=== PATIENT | female | born 1945 | race Asian ===

== ENCOUNTER → 2023-10-09 12:20 | Outpatient (REF) | payer MEDICARE, BC, SELFPAY ==
[2023-10-09 13:53] LABS: ALT (SGPT) 17 U/L (0-35); AST (SGOT) 29 U/L (14-36); Albumin 4.3 g/dl (3.5-5.0); Alkaline Phosphatase 34 U/L (38-126); Blood Urea Nitrogen 12 mg/dl (7-17); Calcium 10.8 mg/dl (8.4-10.2); Carbon Dioxide 29 mmol/L (22-30); Chloride 97 mmol/L (98-107); Glucose 107 mg/dl (70-99); Potassium 4.3 mmol/L (3.5-5.1); Sodium 135 mmol/L (135-145); Total Bilirubin 0.8 mg/dl (0.2-1.3); Total Protein 6.8 g/dl (6.3-8.2); eGFR > 60.00
== END ==
LOC: REG 12:20
PROVIDERS: ATTENDING PHYSICIAN Internal Medicine; FAMILY PHYSICIAN Internal Medicine
DX: M81.0 Age-related osteoporosis without current pathological fracture (principal); Z51.81 Encounter for therapeutic drug level monitoring
CPT/HCPCS: 36415; 80053; 82306

== ENCOUNTER → 2024-04-08 10:09 | Outpatient (REF) | payer MEDICARE, BC, SELFPAY ==
[2024-04-08 11:53] LABS: ALT (SGPT) 26 U/L (0-35); AST (SGOT) 32 U/L (14-36); Albumin 3.9 g/dl (3.5-5.0); Alkaline Phosphatase 35 U/L (38-126); Blood Urea Nitrogen 12 mg/dl (7-17); Calcium 9.2 mg/dl (8.4-10.2); Carbon Dioxide 25 mmol/L (22-30); Chloride 102 mmol/L (98-107); Glucose 101 mg/dl (70-99); Potassium 3.6 mmol/L (3.5-5.1); Sodium 133 mmol/L (135-145); Total Bilirubin 0.7 mg/dl (0.2-1.3); eGFR > 60.00
[2024-04-08 12:07] LABS: Vitamin D, 25-OH*** 54.4 ng/mL (30-80)
== END ==
LOC: RAD 10:09
PROVIDERS: ATTENDING PHYSICIAN Internal Medicine; FAMILY PHYSICIAN Internal Medicine
DX: M81.0 Age-related osteoporosis without current pathological fracture (principal)
CPT/HCPCS: 36415; 77080; 80053; 82306

== ENCOUNTER 2024-10-01 23:44 | Inpatient (IN) | payer MEDICARE, BC, SELFPAY ==
[2024-10-01 19:55] VITALS: BP 111/51
[2024-10-01 20:14] LABS: % Basophils 0.4 % (0-2); % Eosinophils 0.5 % (0-6); % Immature Granulocytes 0.4 % (0-0.5); % Lymphocytes 7.2 % (20.5-51.1); % Monocytes 4.6 % (1.7-9.3); % Neutrophils 86.9 % (42.2-75.2); Absolute Eosinophils 0.1 10^3/uL (0-0.7); Absolute Lymphocytes 0.7 10^3/uL (1.2-3.4); Absolute Monocytes 0.5 10^3/uL (0.1-0.6); Absolute Neutrophils 8.4 10^3/uL (1.4-6.5); Hematocrit 31.5 % (37.0-47.0); Hemoglobin 10.2 g/dL (12.0-16.0); Mean Corp Hgb Conc. 32.4 g/dL (33.0-37.0); Mean Corpuscular Hgb 32.5 pg (27.0-31.0); Mean Corpuscular Volume 100.3 fL (81.0-99.0); Mean Platelet Volume 8.6 fL (7.4-10.4); Nucleated Red Blood Cells % 0 %; Platelet Count 311 10^3/uL (130-400); Red Blood Cell Count 3.14 10^6/uL (4.20-5.40); Red Cell Dist. Width 15.5 % (11.5-14.5); White Blood Cell Count 9.7 10^3/uL (4.8-10.8)
[2024-10-01 20:31] LABS: ALT (SGPT) 21 U/L (0-35); AST (SGOT) 29 U/L (14-36); Albumin 2.6 g/dl (3.5-5.0); Alkaline Phosphatase 58 U/L (38-126); Blood Urea Nitrogen 46 mg/dl (7-17); Calcium 8.5 mg/dl (8.4-10.2); Carbon Dioxide 28 mmol/L (22-30); Chloride 103 mmol/L (98-107); Glucose 134 mg/dl (70-99); Potassium 3.5 mmol/L (3.5-5.1); Sodium 136 mmol/L (135-145); Total Bilirubin 0.7 mg/dl (0.2-1.3); Total Protein 4.7 g/dl (6.3-8.2); eGFR > 60.00
[2024-10-01 20:46] LABS: Lactic Acid 1.5 mmol/L (0.7-2.0)
[2024-10-01 21:58] VITALS: BP 108/47
[2024-10-01 22:00] VITALS: BP 105/52
[2024-10-01 22:02] VITALS: BMI 14.0
--- NOTE | 2024-10-01 22:46 | ED.GENMED ---
History of Present Illness
General
Chief Complaint: Skin Problem
Source: patient and family
Exam Limitations: none
Time Seen by Provider: 10/01/24 22:29
Nursing documentation reviewed up to this point in time: agreed with
History of Present Illness
History of Present Illness:
This a pleasant 78-year-old female that presents to the emergency department with decreased p.o. intake, body swelling, and redness with blisters to the lower extremities. She also notes that her legs are cold and pale. She states that her legs
have been cold since the beginning of August. Family member states that the blisters have been present for about 2 weeks but have progressively been worsening. They noticed that the swelling has increased. Patient has not had any fevers or
chills. She denies headache. Family states that she is unable to ambulate. She lives at home with her but does have family nearby. Upon presentation to the emergency department, nursing states that she was unable to assist in
transferring to the bed.
Past medical history significant for L3 compression fracture, osteoporosis, neck stenosis, pulmonary tuberculosis in 1974 that was treated by pulmonology.
Vital signs are stable. Patient not hypoxic
Nursing note reviewed. I agree with nursing documentation up to this point in time.
Home Meds and allergies reviewed.
NUMBER AND COMPLEXITY OF PROBLEMS ADDRESSED AT THE ENCOUNTER
� Chronic conditions affecting care: Cachexia, iron deficiency anemia, essential tremor, constipation
� Acute Exacerbation and/or Progression of Chronic Illness: cachexia
� Differential Diagnosis includes: Peripheral vascular disease, peripheral arterial disease,
AMOUNT AND/OR COMPLEXITY OF DATA TO BE REVIEWED AND ANALYZED
I performed an independent evaluation of the following and my interpretation is:
EKG:
Pulse Ox: Not Hypoxic
Child And Family Counselor: Sinus Rhythm
CT:
X-rays:
Ultrasound: ordered
Laboratory Studies: GFR is greater than 60, hemoglobin is 10.2, hematocrit hematocrit is 31.5
Other:
Review of other/old records: Upper GI endoscopy from 06/04/2019 showed a normal esophagus with gastritis.
Clinical information was obtained by an independent historian:
Prescriptions/Medications Considered but not given:
Further testing considered but not performed:
RISK OF COMPLICATIONS AND/OR MORBIDITY OR MORTALITY OF PATIENT MANAGEMENT
Social determinants of health affecting care: Good Social Support
Discussion with other providers: Dr. Raysa Quinonez, vascular surgery who recommended nonemergent ABIs.
Escalation of care including admission/observation vs risk of discharge considered: Patient is too weak to stand. When her head is lifted off the pillow she cannot support the weight of her head. Her wounds have been
cultured. Patient to be brought in for continued observation and further testing.
CRITICAL CARE NOTE:
Total Time (exclusive of procedures):
Update:
Review of Systems
Review of Systems
Allergies reviewed?: Yes
Other source history: family
All Other Systems: ROS reviewed and negative except as documented in HPI and ROS
Constitutional: Reports weight gain (Family states that she put on 20 pounds of weight recently. They states she normally weighs approximately 60 pounds) and fatigue
EENT: Reports no symptoms
Respiratory: Reports no symptoms
Cardiac: Reports no symptoms
ABD/GI: Reports no symptoms
: Reports no symptoms
Musculoskeletal: Reports edema
Skin: Reports rash
Neurological: Reports other (Paresthesias to the lower extremities. No other neurological symptoms reported.)
Endocrine: Reports no symptoms
Hematologic/Lymphatic: Reports no symptoms
Psychiatric: Reports anxiety
Phy Exam
Physical Exam
Physical Exam:
Physical Exam
Vital signs and allergy list reviewed and agreed with.
GENERAL: Alert , in minimal apparent distress, unwell appearing, cachectic
EYE: pupils equal, EOMI, anicteric
NECK: Supple, no significant adenopathy. No masses. Trachea midline
ENT: Oropharynx is clear, mmm.
CARDIAC: Regular rate and rhythm . Slight murmur appreciated
LUNGS: Clear breath sounds bilaterally, no acute respiratory distress, no wheezes/rales/rhonchi
ABDOMEN: Soft, without focal tenderness, no r/g, no cvat. Normal BSx4q
NEUROLOGICAL: Alert and oriented, no focal neuro deficits
SKIN: Warm and dry, bullae on the lower extremity. No signs of cellulitis. Bullae in various stages of healing.
MUSCULOSKELETAL: 2+ edema in the feet. Lower extremities are nonedematous. Poorly perfused. Pulses are thready with a Doppler. Moves all 4 extremities
PSYCH: Normal and appropriate interaction.
Neurological Exam
Neurological Exam: alert and oriented x3
Musculoskeletal Exam
Musculoskeletal Exam: edema (Edema of the lower extremities notably from the ankle to the foot. There is some ascites in the abdomen) and neuro vasc intact (Pulses in the lower extremity are dopplerable, but minimally detected by palpation.)
Skin Exam
Skin Exam: normal color, warm/dry, erythema, tenderness, warmth and other (Multiple blisters on bilateral feet in various stages of healing.)
Psychiatric Exam
Psychiatric Exam: normal mood/affect and anxious
Sepsis
Sepsis Screening
Sepsis Assessment: Sepsis Ruled Out
Sepsis Screen
Sepsis Screen: Sepsis Ruled Out
Date: 10/02/24
Time: 06:13
Course
Orders/Labs/Results
Orders:
Orders
10/01/24 20:04
Complete Blood Count/With Diff Urgent
Comprehensive Metabolic Panel Urgent
Erythrocyte Sed Rate Urgent
Lactic Acid Q4H
Comment: ON ICE, CANCEL 2ND ORDER IF FIRST LACTIC ACID LEVEL <2
NT-proBNP Urgent
Comment: ADD ON SERUM
10/01/24 22:30
Blood Culture Q30M
JANAE Source: Blood/Venous
Specimen Description:
Blood Culture Q30M
JANAE Source: Blood/Venous
Specimen Description:
10/01/24 22:31
Lactic Acid Q4H
Comment: CANCEL 2nd LACTIC ACID IF 1st LACTIC ACID IS LESS THAN 2
Wound Culture [Wound/Abscess/Other Culture] Urgent
JANAE Source: Leg
Specimen Description: Left
Date Specimen was Collected: 10/01/24
Time Specimen was Collected: 22:29
10/01/24 23:00
Lower Ext Arterial & MARQUEZ US [US Periph Art LOWER Ext w MARQUEZ] Urgent
Comment:
Reason For Exam: diminished pulses bilateral lower extremities
10/01/24 23:34
Admit/Transfer Patient As Directed
Co-Sign Provider:
Level of Care: Inpatient admission
Assign to:: Medical/Surgical
Physician / Group: harjinder
Diagnosis: lower extremity blisters
Reason for Hospitalization: lower extremity blisters
Expected length of stay greater than two midnights?: Yes
ELOS- Estimated Length of Stay in days: 2
I certify the patient meets the requirements for IP care: Yes
PRN Pain Medication Management As Directed
May give lesser potent ordered pain med per pt: Yes
preference::
Protocol:: Medication orders for pain may be administered in a
manner that supports deferring to patient preference
when the pt is:
- Requesting an ordered lesser potent pain medication.
Least to most potent pain medications are defined
as: acetaminophen < NSAID < tramadol < opioids
(morphine, oxycodone, hydromorphone).
- Requesting a lesser dose of the same medication IF
ORDERED.
- Requesting a less intrusive route of administration
if both routes are prescribed by the provider (PO <
IV).
10/01/24 23:35
Code Status As Directed
Resuscitation Status: Full Code
10/01/24 23:49
CRP [C-Reactive Protein] Urgent
10/02/24 00:09
Piperacillin/Tazo 3.375 Gram [Zosyn] 3.375 gram in 50 ml IV Q6H
VANCOMYCIN Pharmacy to Dose [VANCOCIN Pharmacy to Dose] 1 each Pharmacy To Prepare [Call Pharmacy To Prepare] 0 ml IV PER PROTOCOL
10/02/24 00:09
Vascular Surgery Consult Routine
Consulting Provider: Raysa Quinonez
Was physician already notified: Yes
WOUND/OSTOMY CONSULT Routine
Reason for Consult: leg blisters
Activity As Directed
Activity Level: As Tolerated
Vital Signs As Directed
Frequency: Per unit guidelines
DX Deep Vein Thrombosis Video Routine
10/02/24 01:33
Lactic Acid Q4H
Comment: CANCEL 2nd LACTIC ACID IF 1st LACTIC ACID IS LESS THAN 2
10/02/24 05:49
Complete Blood Count/With Diff IN AM
10/02/24 Breakfast
Regular
At Your Request: Limited, Shorer Required
Does patient need a safe tray?: No
Reason for opting out of [employer] order writing: Provider Decision
Comprehensive Metabolic Panel IN AM
10/02/24 08:00
Ascorbic Acid [Vitamin C] 500 mg PO DAILY
Calcium 300mg(Ca. Carb. 750mg) [Tums Ex (Extra Strength) Chewable Tablet] 300 mg PO BID
Cholecalciferol (Vitamin D3) [VITAMIN D3 (cholecalciferol)] 25 mcg PO DAILY
Heparin 5,000 units SC Q12
Multivitamin [Theragran] 1 tablet PO DAILY
digestive enzymes 2 cap PO MEALS
Abnormal Lab Results
10/01/24 10/01/24
20:04 22:31
RBC 3.14 L 10^6/uL
(4.20-5.40)
Hgb 10.2 L g/dL
(12.0-16.0)
Hct 31.5 L %
(37.0-47.0)
MCV 100.3 H fL
(81.0-99.0)
MCH 32.5 H pg
(27.0-31.0)
MCHC 32.4 L g/dL
(33.0-37.0)
RDW 15.5 H %
(11.5-14.5)
Absolute Neuts (auto) 8.4 H 10^3/uL
(1.4-6.5)
Absolute Lymphs (auto) 0.7 L 10^3/uL
(1.2-3.4)
Neutrophils % 86.9 H %
(42.2-75.2)
Lymphocytes % 7.2 L %
(20.5-51.1)
BUN 46 H mg/dl
(7-17)
Glucose 134 H mg/dl
(70-99)
Lactic Acid 2.2 H mmol/L
(0.7-2.0)
Total Protein 4.7 L g/dl
(6.3-8.2)
Albumin 2.6 L g/dl
(3.5-5.0)
10/01/24 20:04
10/01/24 20:04
Vital Signs
Initial and Last Documented VS:
Initial Vital Signs
Pulse Resp BP Pulse Ox
106 16 111/51 100
10/01/24 19:55 10/01/24 19:55 10/01/24 19:55 10/01/24 19:55
Last Documented Vital Signs
Temp Pulse Resp BP Pulse Ox
97.6 F 64 16 116/48 99
10/02/24 02:58 10/02/24 02:58 10/02/24 02:58 10/02/24 02:58 10/02/24 02:58
*Pulse Oximetry
Patient hypoxic: no
*Critical Care Note
Total Time (30-74mins, 75-104mins- exclusive of procedures): Not Applicable
Update Note
Update Note:
MARQUEZ bilateral ordered
ED Attending Note
-
Portions of this chart may have been created with voice recognition software.� Occasional wrong word or��sound alike� substitutions may have occurred due to the inherent limitations of voice recognition software.
Discharge Plan
Departure
Patient Disposition: Admit
Date of Disposition: 10/01/24
Time of Disposition: 23:19
Admit to: Telemetry
Presentation/result/management discussed w/ accepting MD/DO: Hospitalist
Discharge Problem:
Open wound, lower leg, Cachectic, Bilateral lower extremity edema
Interventions
Interventions:
*Risk Screen - Suicide Last Done: 10/01/24 19:55
*General Assessment Last Done: 10/01/24 19:55
*Neglect/Abuse Screening Last Done: 10/01/24 19:55
ED- Fall Risk Assessment Last Done: 10/01/24 23:57
*ED COVID-19 Vaccine History Last Done: 10/01/24 21:56
*Nursing Disposition Last Done: 10/02/24 02:25
ED-Skin Assessment Last Done: 10/01/24 21:57
Discharge Date and Time
Discharge Date/Time: 10/02/24 02:25
[2024-10-01 23:00] VITALS: BP 117/42
[2024-10-01 23:04] LABS: Lactic Acid 2.2 mmol/L (0.7-2.0)
--- NOTE | 2024-10-01 23:38 | HPS.HSE ---
Family Physician
-
Family Physician: Lg Hernandez
Chief Complaint
-
blisters
History of Present Illness
78-year-old female past medical history of L3 compression fracture, osteoporosis, pulmonary tuberculosis 1975 status post treatment, presenting with decreased p.o. intake, body swelling and redness with blisters of the lower extremities. Her legs
are cold and pale ongoing since August. Family ember states that blisters have been present for 2 weeks but have been progressively getting worse with discharge. Swelling is increased. No fevers or chills. No headache. She is unable to
ambulate. She lives with her but has family nearby. She is also been having increased abdominal distention.
She also having left eye redness and discharge for the past few days.
She denies smoking or alcohol use
Family history of heart disease or vascular disease.
Medical History
Past Medical History
Past Medical History: Reports Other (L3 compression fracture, osteoporosis, pulmonary tuberculosis 1975 status post treatment,)
Past Surgical History: Reports None
Social History
Tobacco: Non-smoker
Alcohol: None
Drug: None
Family History
Family History: Not pertinent
Allergies / Home Medications
Allergies reflects when Allergies were last updated in [facility].
Home Medications with original date entered in [facility]
Allergy/Medication List:
Allergies
Allergy/AdvReac Type Severity Reaction Status Date / Time
NKA - No Known Allergies Allergy Uncoded 12/14/07 10:32
Home Medications
ascorbic acid (vitamin C) 500 mg tablet (Vitamin C) 500 mg PO DAILY 10/01/24
calcium carbonate (Calcium 600) 600 mg PO BID 10/01/24
cholecalciferol (vitamin D3) 25 mcg (1,000 unit) tablet (Vitamin D3) 25 mcg PO DAILY 10/01/24
denosumab 60 mg/mL subcutaneous syringe (Prolia) 60 mg SC [id number] 10/01/24
digestive enzymes 2 cap PO MEALS 10/01/24
therapeutic multivitamin 1 tab PO DAILY 10/01/24
Review of Systems
-
History Source: Patient
A 12 point ROS was completed and negative except as noted: Yes
Constitutional: Reports No Symptoms
EENT: Reports No Symptoms
Respiratory: Reports No Symptoms
Cardiac: Reports No Symptoms
Abdomen/GI: Reports No Symptoms
: Reports No Symptoms
Musculoskeletal: Reports No Symptoms
Skin: Reports See HPI and Other
Neurological: Reports No Symptoms
Endocrine: Reports No Symptoms
Hematologic/Lymphatic: Reports No Symptoms
Psych: Reports No Symptoms
Physical Exam
Vital Signs
Vital Signs
Pulse Resp BP Pulse Ox
75 24 117/42 97
10/01/24 23:00 10/01/24 23:00 10/01/24 23:00 10/01/24 23:00
Physical Exam
General: Well Developed, Well Nourished and No Apparent Distress
HEENT: NormoCephalic, Moist mucous membranes and Atraumatic
Respiratory: Clear
Cardiac: S1/S2 and Regular Rhythm; No Murmur or Rub
GI: Soft, Non Tender, Non Distended and Normal Bowel Sounds; No Organomegaly
Rectal: Deferred by Provider
Musculoskeletal: No Clubbing, No Cyanosis and No Edema
Skin: Other (lower extremity blisters, swelling ); No Rash
Neuro: Nonfocal/grossly intact
Laboratory Results
-
10/01/24 20:04
10/01/24 20:04
Laboratory Results
Lactic Acid 2.2 mmol/L (0.7-2.0) H 10/01/24 22:31
Total Bilirubin 0.7 mg/dl (0.2-1.3) 10/01/24 20:04
AST 29 U/L (14-36) 10/01/24 20:04
ALT 21 U/L (0-35) 10/01/24 20:04
Alkaline Phosphatase 58 U/L (38-126) 10/01/24 20:04
Data Reviewed
-
Lab Data: Labs Reviewed by me
Old Records: Reviewed
Impression/Plan
-
IMPRESSION:
PLAN:
# Bilateral lower extremity blisters/edema suspected secondary to underlying vascular insufficiency
-The lesions are crusted over may not be actively infected
-Check blood cultures
-Wound culture
-Check MARQUEZ
-Vascular consulted
-Vancomycin/Zosyn
-Wound care consult
# Anasarca/hypoalbuminemia
-Nutrition consult
History of L3 compression fracture
Osteoporosis
-On vitamin D, calcium, Prolia
History of pulmonary tuberculosis in 1975 status post treatment
DNR/DNI
DVT prophylaxis�heparin
Regular diet
[2024-10-02] VITALS (7 sets, daily range): BP systolic 98–130; BP diastolic 39–51; BMI 14.0
[2024-10-02 00:07] LABS: Erythrocyte Sed Rate 16 mm/hour (0-20)
[2024-10-02 00:42] LABS: NT-proBNP 3940 pg/ml
[2024-10-02] MEDS: ZOSYN 50 IV ×4 (01:36→19:29)
[2024-10-02 01:58] LABS: Lactic Acid 1.4 mmol/L (0.7-2.0)
[2024-10-02] MEDS: VANCOCIN 200 IV (02:10)
--- NOTE | 2024-10-02 02:30 | PTCARENOTE ---
Patient arrived on unit via stretcher from ED. Patient pulled over to bed by staff. A&Ox3. Patient oriented to room. Call light within reach.
[2024-10-02 06:03] LABS: % Basophils 0.6 % (0-2); % Eosinophils 2.3 % (0-6); % Immature Granulocytes 0.6 % (0-0.5); % Lymphocytes 8.5 % (20.5-51.1); % Monocytes 4.8 % (1.7-9.3); % Neutrophils 83.2 % (42.2-75.2); Absolute Basophils 0.1 10^3/uL (0-0.2); Absolute Eosinophils 0.2 10^3/uL (0-0.7); Absolute Immature Granulocytes 0.1 10^3/uL (0-0.05); Absolute Lymphocytes 0.7 10^3/uL (1.2-3.4); Absolute Monocytes 0.4 10^3/uL (0.1-0.6); Hematocrit 30.1 % (37.0-47.0); Mean Corp Hgb Conc. 33.2 g/dL (33.0-37.0); Mean Corpuscular Hgb 32.9 pg (27.0-31.0); Mean Platelet Volume 8.5 fL (7.4-10.4); Nucleated Red Blood Cells % 0 %; Platelet Count 264 10^3/uL (130-400); Red Blood Cell Count 3.04 10^6/uL (4.20-5.40); Red Cell Dist. Width 15.3 % (11.5-14.5); White Blood Cell Count 8.4 10^3/uL (4.8-10.8)
[2024-10-02 06:47] LABS: ALT (SGPT) 18 U/L (0-35); AST (SGOT) 27 U/L (14-36); Albumin 2.1 g/dl (3.5-5.0); Alkaline Phosphatase 46 U/L (38-126); Blood Urea Nitrogen 46 mg/dl (7-17); Calcium 8.4 mg/dl (8.4-10.2); Carbon Dioxide 26 mmol/L (22-30); Chloride 105 mmol/L (98-107); Estimated Creatinine Clearance 44 ml/min; Glucose 93 mg/dl (70-99); Potassium 3.5 mmol/L (3.5-5.1); Sodium 136 mmol/L (135-145); Total Bilirubin 0.6 mg/dl (0.2-1.3); Total Protein 4.3 g/dl (6.3-8.2); eGFR > 60.00
--- NOTE | 2024-10-02 08:38 | PHA.VAN.IN ---
Assessment
- Assessment
Renal Function: Appears similar to baseline (SCR appears similar to baseline, BUN elevated at 46 vs ~12 in past year)
Concomitant Antimicrobials: piperacillin/tazobactam
Plan
- Plan
Initial / Loading Dose: 1000mg - 10/02 02:10
Maintenance Regimen: dosing by level - will give additional 500mg
Monitoring: random 10/03 0600
Will start with dose by level for elevations to BUN
Pharmacokinetics Vancomycin I
- -
Patient Age: 78
Patient Sex: Female
Vancomycin Day #: 1
Indication: Skin And Soft Tissue
Requesting Provider: Dr. Low
Pertinent Antimicrobial Allergies:
NKDA
Height / Weight:
Height 5 ft 4 in
Actual Weight 37 kg
IBW in k.7
Pertinent Past Medical History: BMI ~14
- Vital Signs / Lab Results
Temp Pulse Resp BP Pulse Ox
97.6 F 66 16 98/49 100
10/02/24 07:55 10/02/24 07:55 10/02/24 07:55 10/02/24 07:55 10/02/24 07:55
Lab Results - Hematology
10/01/24 10/02/24
20:04 05:49
WBC 9.7 8.4
Lab Results - Chemistry
10/01/24 10/02/24
20:04 05:49
BUN 46 H 46 H
Creatinine 0.7 0.6
Estimated Creat Clear 44
Albumin 2.6 L 2.1 L
10/01/24 10/01/24 10/02/24
20:04 22:31 01:33
Lactic Acid 1.5 2.2 H 1.4
[2024-10-02] MEDS: THERAGRAN 1 TABLET PO (08:41)
[2024-10-02] MEDS: VITAMIN D3 (cholecalciferol) 25 MCG PO (08:41)
[2024-10-02] MEDS: VITAMIN C 500 MG PO (08:41)
[2024-10-02] MEDS: HEPARIN 5000 UNITS SC ×2 (08:41→19:28)
[2024-10-02] MEDS: TUMS EX (EXTRA STRENGTH) CHEWABLE TABLET 300 MG PO ×2 (08:59→19:27)
--- NOTE | 2024-10-02 09:10 | CON.VAS ---
Addendum entered and electronically signed by Mateo Tyler MD 10/02/24 15:55:
Seen and examined with MYA Justin. Agree with findings as noted below. Wounds as noted. No evidence of arterial insufficiency both on exam (easily palpable femoral/popliteal/pedal pulses bilaterally) and by noninvasive studies. Likely not arterial
genic ulcerations. Not clear if this represents pyoderma gangrenosum or other noninfectious/nonvascular lesions. Recommend continued wound care, possible eventual dermatology evaluation if concern for healing process. Nothing further from a
vascular perspective. Will sign off.
Original Note:
Consultation
Consultation Request
Date/Time Consultation Performed: 10/02/24
Requesting Provider: Hospitalist
Performing Provider: Eli Justin NP-C for Mateo Tyler MD
Reason for Consultation: Bilateral ankle wounds and ulcerations
Medical History
-
Chief Complaint: Poor p.o. intake and chronic bilateral ankle wounds
History of Present Illness:
This is an 78-year-old female with significant past medical history for osteoporosis, L3 compression fracture, and pulmonary tuberculosis in 1974 who presented to [facility] ED on 10/01/2024 with reports of poor p.o. intake, generalized body
swelling, and continued bilateral lower extremity redness with ulcerations. Patient notes that since roughly early August she has had continued poor p.o. intake and generalized deconditioning to the point where she is no longer ambulatory and she
is maximum assist with her 's aide. She also notes increasing coolness to extremities and swelling with roughly 2 to 3 weeks ago development of bilateral lower extremity calf/ankle redness with ulcerations/sores that have been weeping and
progressively getting worse eventually leading to her reasoning for ED presentation. She reports her poor p.o. intake is due to body swelling that leaves her with no appetite. She offers no other complaints and denies past vascular or surgical in
general interventions. She cannot attest that she has any claudication pain as she has been basically nonmobile since August and prior to that limited in her ambulation. She denies rest pain.
Past Medical History
Past Medical History: Other (L3 compression fracture, osteoporosis, pulmonary tuberculosis 1975 status post treatment)
Past Surgical History: None
Social History
Tobacco: Non-Smoker
Alcohol: None
Allergies / Home Medications
Allergy/AdvReac Type Severity Reaction Status Date / Time
No Known Allergies Allergy Unverified 10/02/24 08:38
�Medication �Instructions �Recorded �Confirmed �Type
ascorbic acid (vitamin C) 500 mg 500 mg PO DAILY 10/01/24 10/01/24 History
tablet (Vitamin C)
calcium carbonate (Calcium 600) 600 mg PO BID 10/01/24 10/01/24 History
cholecalciferol (vitamin D3) 25 25 mcg PO DAILY 10/01/24 10/01/24 History
mcg (1,000 unit) tablet (Vitamin
D3)
denosumab 60 mg/mL subcutaneous 60 mg SC [id number] 10/01/24 10/01/24 History
syringe (Prolia)
digestive enzymes 2 cap PO MEALS 10/01/24 10/01/24 History
therapeutic multivitamin 1 tab PO DAILY 10/01/24 10/01/24 History
Review of Systems
-
History Source: Patient
Constitutional: Reports Weight Loss and Fatigue
EENT: Reports No Symptoms
Respiratory: Reports No Symptoms
Cardiac: Reports No Symptoms
Abdomen/GI: Reports Anorexia and Other (Poor p.o. intake/no appetite)
: Reports No Symptoms
Musculoskeletal: Reports Edema
Skin: Reports Other (Bilateral ankle/calf erythema with ulcerations/sores)
Neurological: Reports No Symptoms
Endocrine: Reports No Symptoms
Physical Exam
Vital Signs
Temp Pulse Resp BP Pulse Ox
97.6 F 66 16 98/49 100
10/02/24 07:55 10/02/24 07:55 10/02/24 07:55 10/02/24 07:55 10/02/24 07:55
Lab Results
02/12/25 05:49
10/02/24 05:49
Rym-G-Qnnhgelvkle Pept 3940 pg/ml 10/01/24 20:04
Physical Exam
General: No Apparent Distress, Comfortable, Poor Appetite and Other (Cachectic)
HEENT: Normocephalic, Anicteric and Atraumatic
Respiratory: Non Labored Respirations
Cardiac: Irregular Rhythm; Negative JVD
GI: Non Tender
Musculoskeletal: Edema (+2 pitting edema at bilateral lower extremities)
Skin: Warm, Rash and Other (Bilateral lower extremity ankle/calf erythema with accompanying ulcerations/sores and sloughing skin)
Neuro: Awake, Alert and Oriented
Pulses: Bilateral Femoral: +2 and Bilateral Dorsalis Pedis: +2 (Unable to assess PT pulses via palpation due to sores and edema)
Assessment / Plan
-
Assessment: 78-year-old female with bilateral lower extremity cellulitis and accompanying ulcerations
Plan:
Unclear if bilateral lower extremity cellulitis and ulcerations/sores are exacerbated by a significant underlying peripheral arterial disease, physical exam and presentation of wounds does not necessarily support diagnosis of peripheral arterial
disease given palpable DP pulses and nature of skin sloughing/superficial ulcerations, no clear dry gangrene arterial ischemia wounds present at feet. Will start workup with arterial ultrasound with MARQUEZ/TBI.
Of note while assessing peripheral pulses noted irregular rhythm, twelve-lead EKG ordered, conveyed plan and irregular rhythm to hospitalist via [place] text.
I performed this shared service with the attending. I evaluated the patient [id number] and have entered clinical documentation as shown in the encounter note. I performed the following component(s):�history and physical exam. Note that medical
decision making is not final until attested by vascular attending.
--- NOTE | 2024-10-02 10:06 | WOUNDNOTE ---
WON RN note: Patient admitted with open wounds and edema of lower legs, cachectic.
See H&P for complete history. Lives with .
PMH: (L3 compression fracture, osteoporosis, pulmonary tuberculosis 1975 status post treatment)
Wound Location and type/assessment: Patient admitted with: lower leg/feet edema and venous ulcers vs atypical wounds. Wound culture pending. Assessed patient along with vascular AIR DEFENSE SPECIALIST Eli Justin, Doppler's done at bedside, + pulses with Doppler and
palpable. Heels boggy but intact. No complaint of severe pain upon cleaning ulcers. Patient said blisters started on lower legs about 2 wks ago along with leg swelling. Has had increased difficulty walking, normally uses a walker and helps
her get oob. Patient able to turn self to sides, Sacrum/coccyx non blanchable red, stage 1 PI, sacral silicone foam in use.
Appetite: Poor, very malnourished. Recommend nutrition consult.
Pressure redistribution devices in place: On [employer] bed, air chair cushion on pillow under calves. Instructed nurse Marion to add air overlay to bed if not getting up in chair, patient can turn self.
Plan: Xeroform and dry dressing applied to both legs with alexander wraps knee high. Continue protective foam on sacrum.
Will confirm orders with hospitalist and updated nurse. Updated care plan and will follow as needed.
Note to case management of equipment requested for discharge: VN for wound care.
Recommend follow up at wound care center upon discharge.
--- NOTE | 2024-10-02 10:06 | WOUNDNOTE ---
BILATERAL LEGS/FOOT
--- NOTE | 2024-10-02 10:07 | WOUNDNOTE ---
RIGHT ANKLE/FOOT
--- NOTE | 2024-10-02 10:08 | WOUNDNOTE ---
RIGHT FOOT/ANKLE/LEG
--- NOTE | 2024-10-02 10:08 | WOUNDNOTE ---
RIGHT POSTERIOR ANKLE/LEG
--- NOTE | 2024-10-02 10:09 | WOUNDNOTE ---
LEFT POSTERIOR ANKLE
--- NOTE | 2024-10-02 10:10 | WOUNDNOTE ---
LEFT LATERAL ANKLE/FOOT
--- NOTE | 2024-10-02 10:10 | WOUNDNOTE ---
LEFT DORSAL FOOT/POSTERIOR ANKLE
--- NOTE | 2024-10-02 10:11 | WOUNDNOTE ---
LEFT POSTERIOR ANKLE/LEG
--- NOTE | 2024-10-02 10:12 | WOUNDNOTE ---
LEFT POSTERIOR ANKLE/LEG
--- NOTE | 2024-10-02 10:12 | WOUNDNOTE ---
LEFT POSTERIOR LEG/ANKLE/HEEL
--- NOTE | 2024-10-02 10:16 | WOUNDNOTE ---
BILATERAL LOWER LEGS
--- NOTE | 2024-10-02 10:22 | WOUNDNOTE ---
RIGHT POSTERIOR ANKLE/LEG/RIGHT HEEL
--- NOTE | 2024-10-02 10:23 | WOUNDNOTE ---
LEFT POSTERIOR LEG
--- NOTE | 2024-10-02 12:12 | W.PN.HOSP.TC ---
Today's Communication/Plan
-
Assessment / Plan
Assessment / Plan
NAD, thin, cachectic, frail
Scleral Anicteric
MMM
No JVD
CTABL
RRR, S1/S2
Soft, NT, ND, BS+
Warm, Dry, lower extremities wrapped in Viadl bandages
AAOx3
Calm
Cutaneous bilateral lower limb ulceration/blistering
Unclear as to etiology
Vascular surgery following completing ABIs at this time however palpable DP/PT pulses
Will obtain a abdominal ultrasound as she complains of abdominal distention
Will obtain CT chest abdomen pelvis with contrast to rule out lymphoma or other underlying malignant process as she has severe cachexia and with these cutaneous lesions
Continue wound care
Will discontinue IV antibiotics monitor off as have reviewed pictures and these do not look infected. No white count. And afebrile.
Anasarca/hypoalbuminemia and anorexic with a BMI less than 18
-Nutrition consult
History of L3 compression fracture
Osteoporosis
-On vitamin D, calcium, Prolia
History of pulmonary tuberculosis in 1975 status post treatment
Anticipated Discharge: 24 - 48 hours
Subjective/Interval History
-
Date of Service: October 02, 2024
Seen and examined. No new complaints. No acute overnight events.
-Tells me that she has had ongoing worsening abdominal distention however her abdomen is flat soft nontender on examination
States that the blistering/ulceration on her lower extremities has been progressively getting worse over 2 weeks
She tells me that she does not eat a lot because of gastric issues
Objective Data
-
Labs:
Laboratory Results
10/02/24
05:49
WBC 8.4
Hgb 10.0 L
Hct 30.1 L
Plt Count 264
Sodium 136
Potassium 3.5
Chloride 105
Carbon Dioxide 26
BUN 46 H
Creatinine 0.6
Glucose 93
Calcium 8.4
Total Bilirubin 0.6
AST 27
ALT 18
Alkaline Phosphatase 46
Vital Signs:
Vital Signs
Temp Pulse Resp BP Pulse Ox
97.6 F 66 16 98/49 100
10/02/24 07:55 10/02/24 07:55 10/02/24 07:55 10/02/24 07:55 10/02/24 07:55
[2024-10-02] MEDS: OMNIPAQUE 50 ML PO (14:22)
--- NOTE | 2024-10-02 15:26 | CM ---
Alert awake sleepy patient who lives with her Veronica who lives in an apartment with an elevator. (which is broken right now).She was independent but recently needs assistance in all activities of daily living.Will need PT OT for dc
planning.She speaks Tamazight and Maori.Spoke with cal Mclean at bedside [phone].
She uses walker
Never had VN/SNF
Pharmacy [facility]
PCP Dr Martinez
PLAN will need PT Ot for dc planning
[2024-10-02] MEDS: VANCOCIN HCL 500 MG 100 IV (15:34)
[2024-10-03] MEDS: ZOSYN 50 IV ×2 (01:38→09:50)
[2024-10-03 06:01] LABS: Vancomycin Random 14.7 ug/ml
[2024-10-03 06:34] LABS: Hematocrit 35.7 % (37.0-47.0); Mean Corp Hgb Conc. 33.6 g/dL (33.0-37.0); Mean Corpuscular Hgb 32.7 pg (27.0-31.0); Mean Corpuscular Volume 97.3 fL (81.0-99.0); Mean Platelet Volume 8.9 fL (7.4-10.4); Platelet Count 329 10^3/uL (130-400); Red Blood Cell Count 3.67 10^6/uL (4.20-5.40); Red Cell Dist. Width 14.9 % (11.5-14.5); White Blood Cell Count 12.4 10^3/uL (4.8-10.8)
[2024-10-03 06:58] LABS: ALT (SGPT) 20 U/L (0-35); AST (SGOT) 30 U/L (14-36); Albumin 2.6 g/dl (3.5-5.0); Alkaline Phosphatase 61 U/L (38-126); Blood Urea Nitrogen 40 mg/dl (7-17); Calcium 8.2 mg/dl (8.4-10.2); Carbon Dioxide 22 mmol/L (22-30); Chloride 103 mmol/L (98-107); Estimated Creatinine Clearance 44 ml/min; Glucose 87 mg/dl (70-99); Potassium 3.8 mmol/L (3.5-5.1); Sodium 132 mmol/L (135-145); Total Bilirubin 0.8 mg/dl (0.2-1.3); Total Protein 4.8 g/dl (6.3-8.2); eGFR > 60.00
[2024-10-03 08:08] VITALS: BP 115/47
[2024-10-03 08:20] VITALS: BP 155/77; BP_SYST 55
--- NOTE | 2024-10-03 08:32 | PHA.VAN.FU ---
Vancomycin Assessment / Plan
- Assessment
Renal Function: Stable (BUN remains elevated)
WBC's are: Trending Up
In the past 24 hrs, patient has been: Afebrile
Concomitant Antimicrobials: piperacillin/tazobactam
- Assessment - Therapeutic Drug Monitoring
Random Level: 14.7 - drawn ~13.5H after previous dose of 500mg
- Dosing Plan
Dosing by Level: Re-dose today (Vanc 500mg)
- Monitoring Plan
Random Level: 10/04 06
- Follow Up
Pharmacy will continue to follow.
Vancomycin Follow UP
- -
Patient Age: 78
Patient Sex: Female
Vancomycin Day #: 2
Indication: Skin And Soft Tissue
Requesting Provider: Dr. Low
Pertinent Antimicrobial Allergies:
NKDA
Height / Weight:
Height 5 ft 4 in
Actual Weight 37 kg
IBW in k.7
Pertinent Past Medical History: BMI ~14
- Vital Signs / Lab Results
Temp Pulse Resp BP Pulse Ox
97.5 F 66 16 115/47 99
10/02/24 23:40 10/03/24 08:08 10/03/24 08:08 10/03/24 08:08 10/03/24 08:08
Lab Results - Hematology
10/01/24 10/02/24 10/03/24
20:04 05:49 05:13
WBC 9.7 8.4 12.4 H
Lab Results - Chemistry
10/01/24 10/02/24 10/03/24
20:04 05:49 05:13
BUN 46 H 46 H 40 H
Creatinine 0.7 0.6 0.5 L
Estimated Creat Clear 44 44
Albumin 2.6 L 2.1 L 2.6 L
10/01/24 10/01/24 10/02/24
20:04 22:31 01:33
Lactic Acid 1.5 2.2 H 1.4
Microbiology Results
10/01/24 22:30 Blood Culture - Preliminary
Blood/Venous No Growth in 24 hours- Final report to follow
10/01/24 22:30 Blood Culture - Preliminary
Blood/Venous No Growth in 24 hours- Final report to follow
10/01/24 22:31 Gram Stain - Preliminary
Leg - Left
Therapeutic Drug Monitoring
Random Vancomycin 14.7 ug/ml 10/03/24 05:13
[2024-10-03] MEDS: HEPARIN 5000 UNITS SC (09:44)
[2024-10-03] MEDS: TUMS EX (EXTRA STRENGTH) CHEWABLE TABLET 300 MG PO ×2 (09:44→19:51)
[2024-10-03] MEDS: THERAGRAN 1 TABLET PO (09:44)
[2024-10-03] MEDS: VITAMIN D3 (cholecalciferol) 25 MCG PO (09:44)
[2024-10-03] MEDS: VITAMIN C 500 MG PO (09:44)
[2024-10-03 11:43] LABS: Body Fluid Albumin < 1.0 g/dl; Body Fluid LDH < 90 U/L; Body Fluid Protein < 2.0 g/dl
[2024-10-03 11:45] LABS: Body Fluid Mononuclear 91.3 %; Body Fluid Polymorphonuclear 8.7 %; Body Fluid WBC 23 /CUMM
[2024-10-03] MEDS: VANCOCIN HCL 500 MG 100 IV (11:49)
[2024-10-03 12:11] LABS: Body Fluid Second Tech SS
[2024-10-03] MEDS: LASIX 20 MG IV (12:40)
[2024-10-03] MEDS: REFRESH EYE DROPS (PF) 1 DROPS LEFT EYE ×3 (12:40→19:51)
--- NOTE | 2024-10-03 12:40 | W.PN.HOSP.TC ---
Today's Communication/Plan
-
Assessment / Plan
Assessment / Plan
NAD, thin, cachectic, frail
Scleral Anicteric
MMM
No JVD
CTABL
RRR, S1/S2
Soft, NT, ND, BS+
Warm, Dry, lower extremities wrapped in Vidal bandages
AAOx3
Calm
Cutaneous bilateral lower limb ulceration/blistering
-I spoke with daughter over the phone who is a physician in [facility]. Practices hospitalist medicine. She informs me that her mom has not been experiencing bilateral lower extremity edema/pedal edema that is been progressively getting
worse. Suspect likely fluid caused a blister which eventually ruptured to develop these bilateral cutaneous lesions.
-CT did not demonstrate adenopathy to suspect lymphoma nor was there evidence of solid lesions to suspect malignancy
Anasarca/hypoalbuminemia and anorexic with a BMI less than 18
-SAAG 1.6, protein less than 2, however CT did not demonstrate cirrhosis
-Will ask GI to evaluate
-Nutrition consult
-Does not want PEG tube as this does not align with goals of care
-Will check a 2D echocardiogram
-Aym some evidence of volume overload will give a dose of diuretics
Hypothermia with lower extremity edema
-Check TSH
History of L3 compression fracture
Osteoporosis
-On vitamin D, calcium, Prolia
History of pulmonary tuberculosis in 1974 status post treatment
Per her daughter Dr. Mazariegosrichy Villanueva her who suffered a stroke 1 year ago also the physician.
PT/OT to eval
Anticipated Discharge: Within 24 hours
Subjective/Interval History
-
Date of Service: October 03, 2024
Seen and examined. No new complaints. No acute overnight events.
Evaluated after paracentesis tolerated procedure well
Though has reported to me by nursing staff that she was hypothermic and was wondering if she should obtain a Shekhar hugger. However I did assess her she did not feel cold to me as were rectal temp 96.7.
Objective Data
-
Labs:
Laboratory Results
10/03/24
05:13
WBC 12.4 H
Hgb 12.0
Hct 35.7 L
Plt Count 329 D
Sodium 132 L
Potassium 3.8
Chloride 103
Carbon Dioxide 22
BUN 40 H
Creatinine 0.5 L
Glucose 87
Calcium 8.2 L
Total Bilirubin 0.8
AST 30
ALT 20
Alkaline Phosphatase 61
Vital Signs:
Vital Signs
Temp Pulse Resp BP Pulse Ox
96.8 F L 55 16 155/77 98
10/03/24 09:44 10/03/24 08:20 10/03/24 08:20 10/03/24 08:20 10/03/24 08:20
I&O
10/02/24 10/03/24 10/04/24
06:59 06:59 06:59
Intake Total 200 / 200
Balance 200 / 200
--- NOTE | 2024-10-03 14:27 | CON.GI ---
Addendum entered and electronically signed by Lizzy Nair MD 10/03/24 18:10:
I saw and examined the patient.
The CAPTAIN CANNERY TENDER or PA's note was reviewed and I agree with the note.
Comment: 78-year-old female with history of pulmonary TB status post treatment, history of gastric intestinal metaplasia with low-grade dysplasia on previous upper endoscopies, history of dilated common bile duct status post ERCP, sphincterotomy
with brushings showing atypical cells, presenting with lower extremity edema, blisters, anasarca and CT scan of the abdomen and pelvis showing ascites. Paracentesis performed, SAAG suggesting portal hypertension etiology for the ascites, total
protein < 2 ruling out cardiac etiology. She does have postprandial abdominal pain, significant weight loss, cachectic looking at this time and labs showing hypoalbuminemia. LFTs within normal limits. MRI in 2019 showing mild stenosis of celiac
axis, widely patent SMA and small but patent RO. She was supposed to follow-up in our office for repeat EGD/imaging but declined testing. Other GI testing as below.
History also obtained from patient's daughter, Dr. Rosales Villanueva (hospitalist/ID at [place], [place]).
-Anasarca with hypoalbuminemia and significant weight loss, ascites of unclear etiology
No evidence of liver disease on CT scan and ultrasound. Paracentesis with portal HTN picture. Cytology still pending.
Given history of previous bile duct dilations, atypical cells on previous bile duct brushings, will start with MRI/MRCP.
Will need to rule out underlying malignancy, especially gastric cancer given history of intestinal metaplasia with low-grade dysplasia on previous endoscopies and patient ethnicity. At this time patient is reluctant but will discuss with her again
regarding upper endoscopy tomorrow.
If above negative, for the postprandial abdominal pain, could also do MRA.
Daughter agreeable with the plan.
Will follow-up
Original Note:
Consultation
-
Date/Time Consultation Requested: 10/03/24 1230
Date/Time Consultation Performed: 10/03/24 1430
Requesting Provider: Cale Lance MD
Performing Provider: DARELL Arthur, Lizzy Nair MD
Reason for Consultation: ascites/hypoalbuminemia
Medical History
Chief Complaint / HPI
History of Present Illness:
Pt is an 78yo presents with hx L 3 compression fx, osteoporosis, pulm Tb 1974 with treatment. In review of records she had prior evaluation with Dr. Schreiber in 2019. During evaluation she was noted with longstanding post prandial pain. Per his
evaluation she had diagnostic ERCP without sphincterotomy in 1997 at [facility]. MRI in 2008 with dilated CBD and liver cysts. She was noted with Ct 2018 with enlarged CBD and 20 lbs wt loss. She completed EGD with antral erosions and low grade dysplasia
with intestinal metaplasia. She was seen by Dr. Schreiber in July 2019 with concern for sphincter of Nishant dysfunction. She completed MRA mild stenosis of celiac axis without median arcuate ligament syndrome, widely patent SMA, small but patent
RO, atherosclerosis on infrarenal AAA and chronic bile duct dilation. HARINI with chronic severe post charles intra and extra Hepatic bile duct ectasia. CBD 25mm no stricture, stone, tumor or inflammation noted. She completed ERCP with grossly dilated
intra and extrahepatic dilation without stricture with sphincterotomy with brushing with atypical cells. She was seen in follow up 10/2019. She was recommended EGD and ERCP at that time with Dr. Schreiber and declined to proceed. She then called in
2021 with noted abdominal pain and distention. She had follow up with Dr. Tapia with continued epigastric pain. He recommended repeat EGD and repeat MRI with referral to [facility] as Dr. Schreiber was leaving practice. She completed testing with
noted continued metaplasia with focal atypia and low grade dysplasia and MRI with similar chronic biliary dilation. She was recommended to see Dr. Nieves but on scheduling pt declined follow up.
She now presents 10/01 to ER with LE swelling and blisters with cool and pale lower extremities. She is also noted with ascites with SAAG concern for portal HTN. In review with patient she continued with post prandial pain which is chronic.
She admits to weight loss but unclear on amount. She denies any issues with nausea, vomiting, diarrhea, constipation or rectal bleeding. Labs notable for mild anemia hbg 10 after admission normal platelets, BUN 40 with normal creat normal LFT's,
CRP 11.4, and albumin down to 2.1. She is also noted with hypothermia. CT on admission normal liver. 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
10/03/24 para 1200ml- path pending, SAAG 1.7 Protein in fluid <2 c/w cirrhosis, neg SBP
10/02/24 CT chest/abd/pel-
No adenopathy. The spleen is normal in size. No anatomic evidence to suggest lymphoma. liver normal size
Cachexia. Anasarca. Pleural effusions. Ascites. Diverticulosis without acute diverticulitis.Possible mild ileus. Chronic parenchymal scarring. No evidence of pneumonia. Stable diffuse dilatation of the common bile duct without intrahepatic ductal
dilatation. Possibly on the basis of previous obstructive process, or perhaps representing type 1c choledochocyst. There is a tiny focus of gas within the central left intrahepatic biliary tree, possibly on the basis of previous biliary-enteric
manipulation in the proper clinical setting.
10/02/24 limited US --Moderate abdominal ascites
05/30/22- EGD (rosa) - Widely patent Schatzki ring- Erythematous mucosa in the antrum. - Normal examined duodenum. bx intestinal metaplasia with focal atypia and focal low grade dysphagia
03/02/22- MRI with and without contrast-no convincing acute process in abdomen stable chronic finding CBD 2.8 cm no filling defect, stone or stricture. PD 6.5 mm.
������ 08/29/19 ERCP (Candie)- Grossly dilated IHD/EHD without a definite strictdure. s/p biliary sphincterotomy brush cytology occasional groups of ATYPICAL cells.
�������08/12/19 MRA- Mild nonhemodynamically significant stenosis of celiac axis origin without configuration to suggest median arcuate ligament syndrome. Widely patent SMA. Small but patent RO. Mild atherosclerosis of infrarenal abd aorta. Chronic
bile duct dilatation.
�������08/09/19 MRI- Chronic severe postcholecystectomy intra and extra bile duct ectasia, CBD 25mm. This is a chronic condition. No sign of stricture, stone, tumor, or inflammation
�������06/04/19 EGD- Antral erythema/erosions bx LOW GRADE DYSPLASIA in background of intestinal metaplasia neg HP. Gastric polyps. SBBx neg celiac
�������03/14/07 COLON (Eid)- Hemorrhoids
Past Medical History
Past Medical History: Other (L3 compression fracture, osteoporosis, pulm TB 1975 s/p treatment, chronic CBD dilation, prior EGD with intestinal metaplasia with low grade dysplasia )
Past Surgical History: Cholecystectomy
Social History
Tobacco: Non-Smoker
Alcohol: None
Drug: None
Personal:
Living: With Family
Employment: Retired
Family History
Family History: Other (no family hx colon CA ,sibling with liver CA, sibling with lung CA)
Allergies / Home Medications
Allergy/AdvReac Type Severity Reaction Status Date / Time
No Known Allergies Allergy Unverified 10/02/24 08:38
�Medication �Instructions �Recorded
ascorbic acid (vitamin C) 500 mg 500 mg PO DAILY Supplement 10/01/24
tablet (Vitamin C)
calcium carbonate (Calcium 600) 600 mg PO BID Supplement 10/01/24
cholecalciferol (vitamin D3) 25 25 mcg PO DAILY Supplement 10/01/24
mcg (1,000 unit) tablet (Vitamin
D3)
denosumab 60 mg/mL subcutaneous 60 mg SC [id number] osteoporosis 10/01/24
syringe (Prolia)
digestive enzymes 2 cap PO MEALS probiotic 10/01/24
therapeutic multivitamin 1 tab PO DAILY Supplement 10/01/24
Review of Systems
-
History Source: Patient
Constitutional: Reports Weight Gain (some gain with fluid ) and Weight Loss
EENT: Reports No Symptoms
Respiratory: Reports No Symptoms
Cardiac: Reports No Symptoms
Abdomen/GI: Reports Abdominal Pain
: Reports No Symptoms
Skin: Reports Other (LE swelling and ulcerations )
Neurological: Reports Weakness
Endocrine: Reports No Symptoms
Hematologic/Lymphatic: Reports No Symptoms
Vital Signs
Temp Pulse Resp BP Pulse Ox
96.8 F L 72 16 127/56 98
10/03/24 09:44 10/03/24 12:40 10/03/24 08:20 10/03/24 12:40 10/03/24 08:20
Physical Exam
Exam
General: Other (thin appearing with cachexia and diffuse anasarca in leg, abdomen and in back )
HEENT: Normocephalic and Anicteric
Respiratory: Clear
Cardiac: Regular Rhythm and Peripheral Edema
GI: Soft and Distended
Musculoskeletal: No Clubbing and No Cyanosis
Skin: Warm and Dry
Neuro: Awake, Alert and AO x 3
Psych: Calm
Results
WBC 12.4 10^3/uL (4.8-10.8) H 10/03/24 05:13
Hgb 12.0 g/dL (12.0-16.0) 10/03/24 05:13
Hct 35.7 % (37.0-47.0) L 10/03/24 05:13
MCV 97.3 fL (81.0-99.0) 10/03/24 05:13
Plt Count 329 10^3/uL (130-400) D 10/03/24 05:13
Absolute Neuts (auto) 7.0 10^3/uL (1.4-6.5) H 10/02/24 05:49
Sodium 132 mmol/L (135-145) L 10/03/24 05:13
Potassium 3.8 mmol/L (3.5-5.1) 10/03/24 05:13
Chloride 103 mmol/L (98-107) 10/03/24 05:13
Carbon Dioxide 22 mmol/L (22-30) 10/03/24 05:13
BUN 40 mg/dl (7-17) H 10/03/24 05:13
Creatinine 0.5 mg/dL (0.6-1.0) L 10/03/24 05:13
Calcium 8.2 mg/dl (8.4-10.2) L 10/03/24 05:13
Total Bilirubin 0.8 mg/dl (0.2-1.3) 10/03/24 05:13
AST 30 U/L (14-36) 10/03/24 05:13
ALT 20 U/L (0-35) 10/03/24 05:13
Alkaline Phosphatase 61 U/L (38-126) 10/03/24 05:13
10/03/24 para 1200ml- path pending, SAAG 1.7 Protein in fluid <2 c/w cirrhosis, neg SBP
10/02/24 CT chest/abd/pel-
No adenopathy. The spleen is normal in size. No anatomic evidence to suggest lymphoma. liver normal size
Cachexia. Anasarca. Pleural effusions. Ascites. Diverticulosis without acute diverticulitis.Possible mild ileus. Chronic parenchymal scarring. No evidence of pneumonia. Stable diffuse dilatation of the common bile duct without intrahepatic ductal
dilatation. Possibly on the basis of previous obstructive process, or perhaps representing type 1c choledochocyst. There is a tiny focus of gas within the central left intrahepatic biliary tree, possibly on the basis of previous biliary-enteric
manipulation in the proper clinical setting.
10/02/24 limited US --Moderate abdominal ascites
05/30/22- EGD ([facility]) - Widely patent Schatzki ring- Erythematous mucosa in the antrum. - Normal examined duodenum. bx intestinal metaplasia with focal atypia and focal low grade dysphagia
03/02/22- MRI with and without contrast-no convincing acute process in abdomen stable chronic finding CBD 2.8 cm no filling defect, stone or stricture. PD 6.5 mm.
������ 08/29/19 ERCP (Candie)- Grossly dilated IHD/EHD without a definite strictdure. s/p biliary sphincterotomy brush cytology occasional groups of ATYPICAL cells.
�������08/12/19 MRA- Mild nonhemodynamically significant stenosis of celiac axis origin without configuration to suggest median arcuate ligament syndrome. Widely patent SMA. Small but patent RO. Mild atherosclerosis of infrarenal abd aorta. Chronic
bile duct dilatation.
�������08/09/19 MRI- Chronic severe postcholecystectomy intra and extra bile duct ectasia, CBD 25mm. This is a chronic condition. No sign of stricture, stone, tumor, or inflammation
�������06/04/19 EGD- Antral erythema/erosions bx LOW GRADE DYSPLASIA in background of intestinal metaplasia neg HP. Gastric polyps. SBBx neg celiac
�������03/14/07 COLON (Eid)- Hemorrhoids
Assessment / Plan
-
Pt is an 78yo presents with hx L 3 compression fx, osteoporosis, pulm Tb 1974 with treatment. In review of records she had prior evaluation with Dr. Schreiber in 2019. During evaluation she was noted with longstanding post prandial pain. Per his
evaluation she had diagnostic ERCP without sphincterotomy in 1997 at [facility]. MRI in 2008 with dilated CBD and liver cysts. She was noted with Ct 2018 with enlarged CBD and 20 lbs wt loss. She completed EGD with antral erosions and low grade dysplasia
with intestinal metaplasia. She was seen by Dr. Schreiber in July 2019 with concern for sphincter of Nishant dysfunction. She completed MRA mild stenosis of celiac axis without median arcuate ligament syndrome, widely patent SMA, small but patent
RO, atherosclerosis on infrarenal AAA and chronic bile duct dilation. MRI with chronic severe post charles intra and extra Hepatic bile duct ectasia. CBD 25mm no stricture, stone, tumor or inflammation noted. She completed ERCP with grossly dilated
intra and extrahepatic dilation without stricture with sphincterotomy with brushing with atypical cells. She was seen in follow up 10/2019. She was recommended EGD and ERCP at that time with Dr. Schreiber and declined to proceed. She then called in
2021 with noted abdominal pain and distention. She had follow up with Dr. Tapia with continued epigastric pain. He recommended repeat EGD and repeat MRI with referral to [facility] as Dr. Schreiber was leaving practice. She completed testing with
noted continued metaplasia with focal atypia and low grade dysplasia and MRI with similar chronic biliary dilation. She was recommended to see Dr. Nieves but on scheduling pt declined follow up. She now presents 2/11 to ER with LE swelling and
blisters with cool and pale lower extremities. She is also noted with ascites with SAAG concern for portal HTN. CT on admission normal liver. 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
-anasarca legs,abd and back
-LE edema with blistering
-ascites -SAAG c/w portal HTN
-severe hypoalbuminemia
-hypothermia
-hx intestinal metaplasia with low grade dysplasia declined further work up last in 2021
-hx CBD dilation with prior MRCP without stricture but noted brushing with atypical cells 2020 on ERCP
-chronic intermittent epigastric pain
-chronic low BMI
-prior MRA with mild celiac axis stenosis small RO in 2018
-? SOD dysfunction in past
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
other med problems:
-hx pulm TB
-comp fx
-osteoporosis
-DNR
PLAN:
etiology of anasarca with hypoalbuminemia unclear-- SAAG c/w portal HTN but CT without cirrhosis and normal LFT's, platelet but profound hypoalbuminemia, malignant process with prior noted low grade dysplasia/intestinal metaplasia on EGD atypical
cell on ERCP 2019. She does have hx pulm TB with prior treatment but typically will have low SAAG and TB has been treated in past, possible nutritional based with chronic low BMI with chronic abdominal pain
agree with echo to exclude component of cardiac dysfunction
add INR for AM
s/p dietary evaluation
will check MRI/ MRCP to follow up with biliary dilatation in past- she was noted with atypical cell on ERCP and declined follow up
possible EGD 10/04 with prior low grade dysplasia -- will review with patient in am to see if agreeable to proceed
will hold SQ heparin and add foot pumps as noted with LE ulcerations
pending results of other testing can consider MRA if other work up neg
follow weight
Dr. Nair and I reviewed with daughter Rosales who is an ID/hospitalist to review prior testing and plan. Agreeable to MRI and EGD(if pt agreeable) if neg consider repeat MRA. She is aware pt may decline some testing as has refused in past.
-
-
Thank you for consultation and allowing me to participate in the patient's care. Please call the hydroelectric station operator chief GI physician during the after hours with any questions or concerns.
--- NOTE | 2024-10-03 15:06 | PN.CDI ---
CDI
- -
CDI:
Physician Documentation Request
Admit Date: 10/01/24 23:44
Dear Doctor Natalio,
Please review the following and provide your response in the progress notes.
Clinical Indicators:
Pt admitted with bilateral lower extremity blisters, anasarca, hypoalbuminemia and anorexia.
10/02 WON RN: ' Sacrum/coccyx non blanchable red, stage 1 PI, sacral silicone foam in use.'
Physician documentation of the type and location of wounds is required for compliant documentation. Based on the above clinical findings and your assessment, please provide the following in your progress note:
Location of the ulcer/wound, including laterality.
Type (etiology) of ulcer/wound:
Sacrum/coccyx pressure injury POA
Sacrum/coccyx non-pressure injury POA
Other
Use of terms such as suspected, likely, concern for, or probable (associated with a specific diagnosis that is being evaluated, monitored, or treated as if it exists) are acceptable and can be coded in the inpatient setting, when documented at the
time of discharge.
Thank you,
Paulette Fong RN, BSN
CDI Specialist
Jesse Text
Please use your independent medical judgment in providing your response.
*Source: National Pressure Ulcer Advisory Panel (NPUAP)
--- NOTE | 2024-10-03 15:14 | PN.CDI ---
CDI
- -
CDI:
Physician Documentation Request
Admit Date: 10/01/24 23:44
Dear Doctor Natalio,
Please review the following and provide your response in the progress notes.
Clinical Indicators:
Pt admitted with bilateral lower extremity blisters, anasarca, hypoalbuminemia and anorexia.
Laboratory Tests
10/03/24
05:13
Sodium 132 L
Based on the above, could you clarify in the progress notes, the appropriate diagnosis, if significant, that supports the above abnormalities and additional evaluation, monitoring and/or treatment rendered:
Hyponatremia
Insignificant abnormal lab value
Other
Use of terms such as suspected, likely, concern for, or probable (associated with a specific diagnosis that is being evaluated, monitored, or treated as if it exists) are acceptable and can be coded in the inpatient setting, when documented at the
time of discharge.
Thank you,
Paulette Fong RN, BSN
CDI Specialist
[facility]
Please use your independent medical judgment in providing your response.
[2024-10-03 15:31] VITALS: BP 125/57
[2024-10-03] MEDS: NON-FORMULARY ITEM 2 CAP PO (19:51)
[2024-10-04 00:22] VITALS: BP 111/59
[2024-10-04 06:02] LABS: Hematocrit 33.7 % (37.0-47.0); Hemoglobin 11.8 g/dL (12.0-16.0); Mean Corpuscular Hgb 33.4 pg (27.0-31.0); Mean Corpuscular Volume 95.5 fL (81.0-99.0); Platelet Count 340 10^3/uL (130-400); Red Blood Cell Count 3.53 10^6/uL (4.20-5.40); White Blood Cell Count 12.9 10^3/uL (4.8-10.8)
[2024-10-04 06:32] LABS: ALT (SGPT) 19 U/L (0-35); AST (SGOT) 26 U/L (14-36); Albumin 2.4 g/dl (3.5-5.0); Alkaline Phosphatase 59 U/L (38-126); Blood Urea Nitrogen 43 mg/dl (7-17); Calcium 8.1 mg/dl (8.4-10.2); Carbon Dioxide 23 mmol/L (22-30); Chloride 105 mmol/L (98-107); Estimated Creatinine Clearance 33 ml/min; Glucose 84 mg/dl (70-99); Potassium 3.7 mmol/L (3.5-5.1); Sodium 135 mmol/L (135-145); Total Bilirubin 0.6 mg/dl (0.2-1.3); Total Protein 4.5 g/dl (6.3-8.2); eGFR > 60.00
[2024-10-04 06:38] LABS: PT 13.7 Sec (11.4-14.6)
[2024-10-04 07:45] VITALS: BP 115/56
[2024-10-04] MEDS: VITAMIN D3 (cholecalciferol) 25 MCG PO (07:57)
[2024-10-04] MEDS: VITAMIN C 500 MG PO (07:57)
[2024-10-04] MEDS: THERAGRAN 1 TABLET PO (07:57)
[2024-10-04] MEDS: NON-FORMULARY ITEM PO ×2 (07:57→08:11)
[2024-10-04] MEDS: TUMS EX (EXTRA STRENGTH) CHEWABLE TABLET PO ×2 (07:57→08:13)
[2024-10-04] MEDS: REFRESH EYE DROPS (PF) 1 DROPS LEFT EYE ×4 (07:57→19:53)
[2024-10-04 09:34] VITALS: BP 124/54
[2024-10-04 09:45] VITALS: BP 137/51
[2024-10-04 10:00] VITALS: BP 142/57
[2024-10-04 11:23] VITALS: BMI 12.4
--- NOTE | 2024-10-04 11:44 | W.PN.HOSP.TC ---
Today's Communication/Plan
-
Assessment / Plan
Assessment / Plan
NAD, thin, cachectic, frail
Scleral Anicteric
MMM
No JVD
CTABL
RRR, S1/S2
Soft, NT, ND, BS+
Warm, Dry, lower extremities wrapped in Vidal bandages
AAOx3
Calm
Cutaneous bilateral lower limb ulceration/blistering
-I spoke with daughter over the phone who is a physician in [facility]. Practices hospitalist medicine. She informs me that her mom has not been experiencing bilateral lower extremity edema/pedal edema that is been progressively getting
worse. Suspect likely fluid caused a blister which eventually ruptured to develop these bilateral cutaneous lesions.
-CT did not demonstrate adenopathy to suspect lymphoma nor was there evidence of solid lesions to suspect malignancy
Anasarca/hypoalbuminemia and anorexic with a BMI less than 18 with severe protein calorie malnutrition
-SAAG 1.6, protein less than 2, however CT did not demonstrate cirrhosis
-GI completed EGD today
--Mild Schatzki rings lower esophagus, hiatal hernia, erythema mucosa in the stomach, few gastric polyps
--Plan for MRCP, if unrevealing consider MR a abdomen to potentially rule out SMA syndrome
-Nutrition consult
-Does not want PEG tube as this does not align with goals of care
-2D echocardiogram
-IV Lasix
Hypothermia with lower extremity edema
-Goal normothermia
-IV Lasix
-Start levothyroxine
Hypothyroidism
-Start levothyroxine
--If becomes tachycardic reduce dose by 25mcg
-Repeat TFTs in 4 to 6 weeks
History of L3 compression fracture
Osteoporosis
-On vitamin D, calcium, Prolia
History of pulmonary tuberculosis in 1974 status post treatment
Per her daughter Dr. Rosales Villanueva her who suffered a stroke 1 year ago also the physician.
PT/OT to eval
Anticipated Discharge: > 48 hours
Subjective/Interval History
-
Date of Service: October 04, 2024
Seen and examined. No new complaints. No acute overnight events.
Objective Data
-
Labs:
Laboratory Results
10/04/24
05:26
WBC 12.9 H
Hgb 11.8 L
Hct 33.7 L
Plt Count 340
PT 13.7
INR 1.00
Sodium 135
Potassium 3.7
Chloride 105
Carbon Dioxide 23
BUN 43 H
Creatinine 0.8
Glucose 84
Calcium 8.1 L
Total Bilirubin 0.6
AST 26
ALT 19
Alkaline Phosphatase 59
Vital Signs:
Vital Signs
Temp Pulse Resp BP Pulse Ox
97.6 F 76 18 142/57 94
10/04/24 07:45 10/04/24 10:00 10/04/24 10:00 10/04/24 10:00 10/04/24 07:45
I&O
10/03/24 10/04/24 10/05/24
06:59 06:59 06:59
Intake Total 200 / 200 360 / 360
Balance 200 / 200 360 / 360
[2024-10-04 12:56] LABS: Magnesium 1.9 mg/dl (1.6-2.3); Phosphorus 4.2 mg/dl (2.5-4.5)
[2024-10-04] MEDS: SYNTHROID 25 MCG PO (13:28)
[2024-10-04] MEDS: NON-FORMULARY ITEM 2 CAP PO ×2 (13:29→17:46)
[2024-10-04] MEDS: LASIX 20 MG IV (13:29)
--- NOTE | 2024-10-04 14:11 | PTCARENOTE ---
notified Dr. Edgard Lance via tt this AM... made aware that pt is inc and was unable to sit on commode for urine sample, requested 1x straight cath order, also noted pt being very weak, took 3 people to get standing scale weight, requested PT/OT treat
orders. Not addressed via tt, no orders placed. Dr. Lance made aware that this nurse spoke with daughter this AM, daughter requesting to speak with hospitalist.
took 3 people to stand pt at bedside to get standing scale weight. Pt was extremely weak, struggling to bear own weight, pt almost fell backwards but was being supported heavily by staff. At baseline pt reports that she ambulates with rolling
walker. Pt far off of baseline at this time.
[2024-10-04 15:25] VITALS: BP 110/62
--- NOTE | 2024-10-04 16:14 | W.PN.UPDATE ---
Update Note
Progress Note Update
10/04/24 MR Abdomen W/o & W Contrast
1. No MRCP evidence for choledocholithiasis.
2. Bile duct dilatation with significantly dilated extrahepatic bile ducts, mildly dilated intrahepatic bile ducts, and mild main pancreatic ductal dilatation within the head of the pancreas. Findings could be secondary to a stricture or occult
ampullary neoplasm but the imaging appearance is essentially stable compared to the MRI abdomen from 03/02/2022.
3. Large volume abdominopelvic ascites.
4. Severe anasarca.
5. Large bilateral pleural effusions.
reviewed MRI with daughter. 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 She will review with mother. will check CA 19-9 and will add MRA with post prandial pain to eval for any stenosis as some
abnormality on imaging in 2019.
[2024-10-04] MEDS: TUMS EX (EXTRA STRENGTH) CHEWABLE TABLET 300 MG PO (19:54)
[2024-10-05 00:05] VITALS: BP 123/61
[2024-10-05] MEDS: SYNTHROID 25 MCG PO (05:37)
[2024-10-05 07:43] LABS: Hematocrit 32.7 % (37.0-47.0); Hemoglobin 11.1 g/dL (12.0-16.0); Mean Corp Hgb Conc. 33.9 g/dL (33.0-37.0); Mean Corpuscular Hgb 33.1 pg (27.0-31.0); Mean Corpuscular Volume 97.6 fL (81.0-99.0); Mean Platelet Volume 9.2 fL (7.4-10.4); Platelet Count 336 10^3/uL (130-400); Red Blood Cell Count 3.35 10^6/uL (4.20-5.40); Red Cell Dist. Width 14.8 % (11.5-14.5); White Blood Cell Count 12.7 10^3/uL (4.8-10.8)
[2024-10-05 07:44] VITALS: BP 118/50
[2024-10-05] MEDS: THERAGRAN 1 TABLET PO (08:20)
[2024-10-05] MEDS: TUMS EX (EXTRA STRENGTH) CHEWABLE TABLET 300 MG PO (08:20)
[2024-10-05] MEDS: VITAMIN D3 (cholecalciferol) 25 MCG PO (08:20)
[2024-10-05] MEDS: REFRESH EYE DROPS (PF) 1 DROPS LEFT EYE ×4 (08:20→21:40)
[2024-10-05] MEDS: VITAMIN C 500 MG PO (08:20)
[2024-10-05] MEDS: NON-FORMULARY ITEM 2 CAP PO ×3 (08:21→17:50)
--- NOTE | 2024-10-05 11:14 | W.PN.HOSP.TC ---
Addendum entered and electronically signed by Cale Lance MD 10/05/24 14:09:
hyponatremia, resolved
Addendum entered and electronically signed by Cale Lance MD 10/05/24 14:07:
Sacrum/coccyx non blanchable red, stage 1 PI
wound care
Addendum entered and electronically signed by Cale Lance MD 10/05/24 13:12:
Hypokalemia
Replete PRN
Original Note:
Today's Communication/Plan
-
Assessment / Plan
Assessment / Plan
NAD, thin, cachectic, frail
Scleral Anicteric
MMM
No JVD
CTABL
RRR, S1/S2
Soft, NT, ND, BS+
Warm, Dry, lower extremities wrapped in Vidal bandages
AAOx3
Calm
Cutaneous bilateral lower limb ulceration/blistering
-I spoke with daughter over the phone who is a physician in [facility]. Practices hospitalist medicine. She informs me that her mom has not been experiencing bilateral lower extremity edema/pedal edema that is been progressively getting
worse. Suspect likely fluid caused a blister which eventually ruptured to develop these bilateral cutaneous lesions.
-CT did not demonstrate adenopathy to suspect lymphoma nor was there evidence of solid lesions to suspect malignancy
-Continue local wound care
Anasarca/hypoalbuminemia and anorexic with a BMI less than 18 with severe protein calorie malnutrition
-SAAG 1.6, protein less than 2, however CT did not demonstrate cirrhosis
-GI
--S/p Egd: Mild Schatzki rings lower esophagus, hiatal hernia, erythema mucosa in the stomach, few gastric polyps
--MRCP concern for stricture or occult ampullary neoplasm, though stable compared to MRI abdomen from 03/11
--MRA ordered
--CA19-9 /CEA ordered
--Will consider EUS w/ Bx
-Nutrition consult
-Does not want PEG tube as this does not align with goals of care
-2D echocardiogram w/o evidence of RWMA/EF 50-55%
-Likely will redose lasix. Awaiting standing weight from Nurse as 10/04 weight qA 72lb and per daughter dry weight around 66lb
Severe Aortic Insufficiency
-Will need outpatient follow up with cardiology
Hypothermia with lower extremity edema
-Goal normothermia
-Started levothyroxine
Hypothyroidism
-Started levothyroxine
--If becomes tachycardic reduce dose by 25mcg
-Repeat TFTs in 4 to 6 weeks
History of L3 compression fracture
Osteoporosis
-On vitamin D, calcium, Prolia
History of pulmonary tuberculosis in 1974 status post treatment
Per her daughter Dr. Rosales Villanueva her who suffered a stroke 1 year ago also the physician.
PT/OT to eval
Anticipated Discharge: > 48 hours
Subjective/Interval History
-
Date of Service: October 05, 2024
Seen and examined. No new complaints. No acute overnight events.
Still has some abdominal pain
Objective Data
-
Labs:
Laboratory Results
10/05/24
06:18
WBC 12.7 H
Hgb 11.1 L
Hct 32.7 L
Plt Count 336
Vital Signs:
Vital Signs
Temp Pulse Resp BP Pulse Ox
99.5 F 73 20 118/50 98
10/05/24 07:44 10/05/24 07:44 10/05/24 07:44 10/05/24 07:44 10/05/24 07:44
I&O
10/04/24 10/05/24 10/06/24
06:59 06:59 06:59
Intake Total 360 / 360
Balance 360 / 360
[2024-10-05 11:36] VITALS: BMI 12.3
[2024-10-05 11:54] LABS: Blood Urea Nitrogen 48 mg/dl (7-17); Calcium 8.2 mg/dl (8.4-10.2); Carbon Dioxide 26 mmol/L (22-30); Chloride 102 mmol/L (98-107); Estimated Creatinine Clearance 29 ml/min; Glucose 92 mg/dl (70-99); Potassium 3.2 mmol/L (3.5-5.1); Sodium 135 mmol/L (135-145); eGFR > 60.00
--- NOTE | 2024-10-05 14:59 | W.PN.GI.CBS2 ---
Today's Communication / Plan
-
CTA if negative DC planning
Assessment / Plan
-
78-year-old female with history of pulmonary TB status post treatment, history of gastric intestinal metaplasia with low-grade dysplasia on previous upper endoscopies, history of dilated common bile duct status post ERCP, sphincterotomy with
brushings showing atypical cells, presenting with lower extremity edema, blisters, anasarca and CT scan of the abdomen and pelvis showing ascites. Paracentesis performed, SAAG suggesting portal hypertension etiology for the ascites, total protein <
2 ruling out cardiac etiology. She does have postprandial abdominal pain, significant weight loss, cachectic looking at this time and labs showing hypoalbuminemia. LFTs within normal limits. MRI in 2019 showing mild stenosis of celiac axis,
widely patent SMA and small but patent RO. She was supposed to follow-up in our office for repeat EGD/imaging but declined testing.
This admission we have done EGD (gastritis, Schiatzki ring, HH, gastric polyp path pending but no suspicious lesions); MRI/MRCP (bile duct dilation, stable from 2021); large volume ascites; severe anasarca; large bilateral pleural effusions; MRA (A
component of mild narrowing is suggested at the origin of celiac artery, though the degree of narrowing is difficult to assess with certainty. This may be better evaluated with CT angiography. No poststenotic dilatation of the celiac artery).
I reviewed this with daughter in detail - plan to do CTA for further evaluation if positive recommend consulting vascular/IR re: possible stent (daughter not interested in surgery given her age).
Discussed ERCP outpatient daughter wishes to hold off on this time as would not want to pursue surgery.
No role for repeat para pt comfortable, only 1300L drained on 10/03.
D/w hospitalist.
Subjective
Subjective
Date of Service: October 05, 2024
patient without complaints
Objective
Data Reviewed
Laboratory Data:
Laboratory Results
10/05/24 06:18
10/05/24 06:18
Laboratory Results
PT 13.7 Sec (11.4-14.6) 10/04/24 05:26
INR 1.00 10/04/24 05:26
Phosphorus 4.0 mg/dl (2.5-4.5) 10/05/24 06:18
Magnesium 2.0 mg/dl (1.6-2.3) 10/05/24 06:18
Total Bilirubin 0.6 mg/dl (0.2-1.3) 10/04/24 05:26
AST 26 U/L (14-36) 10/04/24 05:26
ALT 19 U/L (0-35) 10/04/24 05:26
Alkaline Phosphatase 59 U/L (38-126) 10/04/24 05:26
Vital Signs and I&O:
Vital Signs
Temp Pulse Resp BP Pulse Ox
99.5 F 73 20 118/50 98
10/05/24 07:44 10/05/24 07:44 10/05/24 07:44 10/05/24 07:44 10/05/24 07:44
I&O
10/04/24 10/05/24 10/06/24
06:59 06:59 06:59
Intake Total 360 / 360
Output Total 500 / 500
Balance 360 / 360 -500 / -500
Physical Exam
Physical Exam
HEENT: Other (cachetic)
Cardiology: Normal Sinus Rhythm
Pulmonary: Clear
GI: Non Distended and Non Tender
[2024-10-05 15:00] VITALS: BP 159/72
[2024-10-05] MEDS: KCL 40 MEQ PO ×3 (15:06→21:40)
[2024-10-05 15:26] LABS: Protein/creatinine Ratio 0.4; Urine Protein 8 mg/dl; Urine Protein 8 mg/dl (0-12)
[2024-10-05 15:37] LABS: Urine Albumin Negative (Neg - Trace); Urine Bilirubin Negative (Negative); Urine Character Slightly Cloudy (Clear); Urine Color Yellow; Urine Glucose Negative (Negative); Urine Ketone Negative (Negative); Urine Leukocyte Negative (Negative); Urine Nitrite Negative (Negative); Urine Occult Blood Negative (Negative); Urine Specific Gravity 1.015 (<1.030); Urine Urobilinogen Negative (Neg - 1+)
[2024-10-05 16:24] VITALS: BP 149/65; PULSE 77; O2SAT 99
[2024-10-05 18:55] VITALS: BP 126/84
[2024-10-05] MEDS: TUMS EX (EXTRA STRENGTH) CHEWABLE TABLET PO (21:41)
[2024-10-05 23:00] VITALS: BP 99/53
[2024-10-06] VITALS (7 sets, daily range): BP systolic 90–112; BP diastolic 46–64
[2024-10-06] MEDS: SYNTHROID 25 MCG PO (05:29)
[2024-10-06 07:05] LABS: Hematocrit 33.9 % (37.0-47.0); Hemoglobin 11.6 g/dL (12.0-16.0); Mean Corp Hgb Conc. 34.2 g/dL (33.0-37.0); Mean Corpuscular Hgb 33.1 pg (27.0-31.0); Mean Corpuscular Volume 96.9 fL (81.0-99.0); Mean Platelet Volume 9.1 fL (7.4-10.4); Platelet Count 338 10^3/uL (130-400); Red Cell Dist. Width 14.9 % (11.5-14.5); White Blood Cell Count 11.7 10^3/uL (4.8-10.8)
[2024-10-06] MEDS: THERAGRAN 1 TABLET PO (08:01)
[2024-10-06] MEDS: VITAMIN D3 (cholecalciferol) 25 MCG PO (08:01)
[2024-10-06] MEDS: REFRESH EYE DROPS (PF) 1 DROPS LEFT EYE ×4 (08:01→20:50)
[2024-10-06] MEDS: TUMS EX (EXTRA STRENGTH) CHEWABLE TABLET 300 MG PO ×2 (08:02→20:50)
[2024-10-06] MEDS: NON-FORMULARY ITEM 2 CAP PO ×3 (08:07→17:06)
[2024-10-06] MEDS: VITAMIN C 500 MG PO (08:08)
[2024-10-06 08:09] LABS: Blood Urea Nitrogen 48 mg/dl (7-17); Calcium 8.3 mg/dl (8.4-10.2); Carbon Dioxide 22 mmol/L (22-30); Chloride 111 mmol/L (98-107); Estimated Creatinine Clearance 38 ml/min; Glucose 100 mg/dl (70-99); Magnesium 2.1 mg/dl (1.6-2.3); Phosphorus 2.7 mg/dl (2.5-4.5); Potassium 6.8 mmol/L (3.5-5.1); Sodium 138 mmol/L (135-145); eGFR > 60.00
[2024-10-06] MEDS: LASIX 40 MG IV (08:40)
[2024-10-06] MEDS: LOKELMA 10 GRAM PO ×3 (08:44→17:05)
[2024-10-06 09:03] LABS: Blood Urea Nitrogen 47 mg/dl (7-17); Calcium 8.4 mg/dl (8.4-10.2); Carbon Dioxide 24 mmol/L (22-30); Chloride 110 mmol/L (98-107); Estimated Creatinine Clearance 33 ml/min; Glucose 114 mg/dl (70-99); Potassium 6.4 mmol/L (3.5-5.1); Sodium 137 mmol/L (135-145); eGFR > 60.00
--- NOTE | 2024-10-06 09:06 | PTCARENOTE ---
pt's K 3.2 10/05/24 repleted with 40 meq K q4hr x3, total dose 120 meq
this AM pt K 6.8. Dr. Edgard Lance notified via tt at 813
Ordered: STAT repeat BMP, Lokelma x1, x1 40mg IV Lasix, tele monitoring, EKG
repeat BMP prior to Lokelma or Lasix administration 6.4
EKG: accelerated junctional rhythm with occasional PVCs. See reports for further info
Placed on tele #23 running NSR hr 90
Lokelma and Lasix administered
family at the bedside, updated by this nurse
pt sent to scheduled CT
[2024-10-06 09:42] LABS: Glucose - Point of Care 105 mg/dl (70-99)
[2024-10-06] MEDS: CALCIUM GLUCONATE 1000 MG IV (09:53)
[2024-10-06] MEDS: DEXTROSE 50% SYRINGE 25 GRAMS IV (09:53)
[2024-10-06] MEDS: NOVOLIN R 0.1 UNITS IV (09:53)
[2024-10-06] MEDS: FLUSH (NSS) 6 FLUSH IV (09:54)
[2024-10-06 11:05] LABS: Glucose - Point of Care 198 mg/dl (70-99)
--- NOTE | 2024-10-06 11:21 | PTCARENOTE ---
pt IV access was leaking when down at CT. pt brought back to floor for IV reaccess and STAT hyperkalemic meds ordered by Dr. Cheryl Lance.
no IV access regained. limb alert placed on RUE, IV team requesting no BP in RUE to preserve IV access.
calcium gluconate, dextrose 50% and Humalog given to pt, see MAR
Accu check prior to administration 105
1hr post administration Accu check 198, Dr. Lance notified via tt at 11:17
wound care completed with daughter at the bedside
pt refusing to wear foot pumps, pt daughter requesting heparin be restarted for DVT prevention. Natalio Melendrez notified via tt at 11:18
-heparin SC Q12 ordered
pt heart rhythm previously in NSR pt now in afib, Dr. Lance notified via tt at 1128
EKG: Afib @11:39
[2024-10-06 11:58] LABS: Potassium 5.5 mmol/L (3.5-5.1)
--- NOTE | 2024-10-06 12:16 | W.PN.HOSP.TC ---
Today's Communication/Plan
-
Assessment / Plan
Assessment / Plan
NAD, thin, cachectic, frail
Scleral Anicteric
MMM
No JVD
CTABL
RRR, S1/S2
Soft, NT, ND, BS+
Warm, Dry, lower extremities wrapped in Vidal bandages, bipedal edema
AAOx3
Calm
Cutaneous bilateral lower limb ulceration/blistering
-I spoke with daughter over the phone who is a physician in [facility]. Practices hospitalist medicine. She informs me that her mom has not been experiencing bilateral lower extremity edema/pedal edema that is been progressively getting
worse. Suspect likely fluid caused a blister which eventually ruptured to develop these bilateral cutaneous lesions.
-CT did not demonstrate adenopathy to suspect lymphoma nor was there evidence of solid lesions to suspect malignancy
-Continue local wound care
Anasarca/hypoalbuminemia and anorexic with a BMI less than 18 with severe protein calorie malnutrition
-SAAG 1.6, protein less than 2, however CT did not demonstrate cirrhosis
-GI
--S/p Egd: Mild Schatzki rings lower esophagus, hiatal hernia, erythema mucosa in the stomach, few gastric polyps
--MRCP concern for stricture or occult ampullary neoplasm, though stable compared to MRI abdomen from 03/11
--MRA ordered
--CA19-9 /CEA ordered
--Will consider EUS w/ Bx
-Nutrition consult
-Does not want PEG tube as this does not align with goals of care
-2D echocardiogram w/o evidence of RWMA/EF 50-55%
-Laisx PRN
--- On discharge likely sent home with as needed diuretics for weight gain/lower extremity swelling. Would avoid daily as she has a baseline history of poor p.o. intake.
Severe Aortic Insufficiency
-Will need outpatient follow up with cardiology
Hypothermia with lower extremity edema
-Goal normothermia
-Started levothyroxine
Atrial fibrillation, new onset
-When I evaluated her she was not in atrial fibrillation. Was notified by nursing. EEG obtained
-Recently started on levothyroxine 2 days ago low-dose 25 mcg. May need to discontinue or could start po BB low dose. Would appreciate cardiology input
Will have cardiology evaluate
Hypokalemia unclear as to etiology. Also 3.2, received 120 mcg of p.o. potassium as was on Lasix.
-Today 6.9 followed by 6.4 on repeat. Temporizing measures provided with insulin dextrose. Calcium gluconate provided to stabilize cardiac membranes though EKG did not demonstrate hyperkalemic changes.
-Will provide Lokelma and Lasix
Hypothyroidism
-Started levothyroxine
--If becomes tachycardic reduce dose by 25mcg
-Repeat TFTs in 4 to 6 weeks
History of L3 compression fracture
Osteoporosis
-On vitamin D, calcium, Prolia
History of pulmonary tuberculosis in 1974 status post treatment
Per her daughter Dr. Caba Rim her who suffered a stroke 1 year ago also the physician.
PT/OT to eval
Anticipated Discharge: 24 - 48 hours
Subjective/Interval History
-
Date of Service: October 06, 2024
Seen and examined. In and out of atrial fibrillation. Potassium in the high sixes
Objective Data
-
Labs:
Laboratory Results
10/06/24 10/06/24 10/06/24
05:28 08:39 11:34
WBC 11.7 H
Hgb 11.6 L
Hct 33.9 L
Plt Count 338
Sodium 138 137
Potassium 6.8 H* D 6.4 H* 5.5 H
Chloride 111 H 110 H
Carbon Dioxide 22 24
BUN 48 H 47 H
Creatinine 0.6 0.7
Glucose 100 H 114 H
Calcium 8.3 L 8.4
10/06/24
13:00
WBC
Hgb
Hct
Plt Count
Sodium Pending
Potassium Pending
Chloride Pending
Carbon Dioxide Pending
BUN Pending
Creatinine Pending
Glucose Pending
Calcium Pending
Vital Signs:
Vital Signs
Temp Pulse Resp BP Pulse Ox
97.8 F 91 18 96/51 97
10/06/24 11:10 10/06/24 11:10 10/06/24 11:10 10/06/24 11:10 10/06/24 11:10
I&O
10/05/24 10/06/24 10/07/24
06:59 06:59 06:59
Intake Total 360 / 360
Output Total 500 / 500
Balance -140 / -140
--- NOTE | 2024-10-06 12:26 | PTCARENOTE ---
Addendum entered by Jayne David RN 10/06/24 12:28:
cardiology consulted
Original Note:
pt on tele monitoring, pt was in SR w/ PVCs this AM. pt has converted to afib.
pt hr jumping to 140s-180 at times while pt is laying asleep in bed.
Dr. Lance notified via tt at 11:28
repeat EKG at 1140 afib
[2024-10-06 12:29] LABS: Glucose - Point of Care 185 mg/dl (70-99)
--- NOTE | 2024-10-06 13:27 | CON.CAR ---
Consultation
Consultation Request
Date/Time Consultation Requested: 07/06/2025 at 1245
Date/Time Consultation Performed: 07/06/2025 at 1330
Requesting Provider: Dr. Edgard Lance
Performing Provider: Cyril Mcbride MD
Reason for Consultation: Atrial fibrillation with rapid ventricular response
Medical History
-
Chief Complaint: Atrial tachycardia
History of Present Illness:
78-year-old woman with long history of underweight admitted with lower extremity edema , prior history of tuberculosis, L3 compression fracture. She has undergone endoscopy during this admission, also had an echo showing severe aortic
regurgitation, his celiac artery stenosis recently diagnosed with hypothyroidism and started on levothyroxine. 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 She was modestly hypokalemic
received 100 mL equivalents potassium, had a potassium of 6.9 this morning with EKG changes consistent with hyperkalemia with QT prolongation, now better with a potassium that is in the low fives. Monitor shows runs of rapid atrial tachycardia
lasting 10 seconds or so, cardiology consultation is requested. Of note, patient has a body mass of 32.6 kg as of today, body mass index is 12.3 patient is a DNR effective today. Daughter is a hospitalist who works in [employer] [facility].
Past Medical History
Past Medical History: Other (History of tuberculosis 1970s, treated, osteoporosis with L3 compression fracture, admitted on October 01 with lower extremity edema and erythema with cold lower extremities)
Past Surgical History: None
Social History
Tobacco: Non-Smoker
Alcohol: None
Drug: None
Personal:
Living: With Family
Employment: Retired
Family History
Family History: Reviewed & Not Pertinent
Allergies / Home Medications
Allergy/AdvReac Type Severity Reaction Status Date / Time
No Known Allergies Allergy Unverified 10/02/24 08:38
�Medication �Instructions �Recorded �Confirmed �Type
ascorbic acid (vitamin C) 500 mg 500 mg PO DAILY Supplement 10/01/24 10/01/24 History
tablet (Vitamin C)
calcium carbonate (Calcium 600) 600 mg PO BID Supplement 10/01/24 10/01/24 History
cholecalciferol (vitamin D3) 25 25 mcg PO DAILY Supplement 10/01/24 10/01/24 History
mcg (1,000 unit) tablet (Vitamin
D3)
denosumab 60 mg/mL subcutaneous 60 mg SC [id number] osteoporosis 10/01/24 10/01/24 History
syringe (Prolia)
digestive enzymes 2 cap PO MEALS probiotic 10/01/24 10/01/24 History
therapeutic multivitamin 1 tab PO DAILY Supplement 10/01/24 10/01/24 History
Review of Systems
-
All other systems: Negative unless noted
Physical Exam
Vital Signs
Temp Pulse Resp BP Pulse Ox
36.6 C 81 18 95/46 97
10/06/24 11:10 10/06/24 13:21 10/06/24 11:10 10/06/24 13:21 10/06/24 11:10
Lab Results
10/06/24 05:28
[id number] Pept 3940 pg/ml 10/01/24 20:04
Physical Exam
General: Other (Cachectic very severely malnourished)
HEENT: Other (Temporal wasting)
Respiratory: Crackles
Cardiac: Regular Rhythm and Other (No AI murmur audible)
GI: Other (Scaphoid)
Musculoskeletal: Edema (2+ edema)
Neuro: AO x 3
Psych: Calm
Impression / Plan
-
Impression:
Anasarca/ascites/malnutrition
Paroxysmal atrial tachycardia
Severe aortic regurgitation diagnosed by echo 09/2024
Hypothyroidism
Mild celiac artery stenosis
Hyperkalemia 10/06/2024
Ascites, SAAG with portal hypertension, paracentesis 1200 mL 10/03/2024
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
Schatzki's ring
Hypoalbuminemia/malnutrition
Osteoporosis/L3 compression fracture
Echo 10/03/2024: EF 50-55% normal RV, normal atria, thickened mitral leaflets and mild mitral regurgitation, severe aortic regurgitation, thickened leaflets, mild tricuspid regurgitation, pulmonary artery pressure 20-25
Arterial Doppler 10/02/2024: Multiphasic waveforms both lower extremities, right TBI 0.7, left TBI 0.72, ABIs bilaterally 1.[address] chest, abdomen pelvis 10/02/2024: Moderate pleural effusions, ascites, severe sarcopenia throughout, pancreatic atrophy, no aortic aneurysm
Plan:
She presents with bursts of atrial tachycardia. It is unclear whether this was happening earlier as she was not on telemetry. This occurred in the setting of hyperkalemia with EKG changes, and seems to be improving.
Unfortunately, therapeutic options are very limited. She is hypotensive so beta-blockers and calcium blockers was cannot be used. Given recent electrolyte changes and prolonged QT, I am reluctant to use an agent such as amiodarone or other
antiarrhythmic drugs. Digoxin or amiodarone could be considered if absolutely necessary.
I wonder if she has very very given that she is extremely malnourished and has what could be kwashiorkor.
On echo, she has severe aortic regurgitation but no aortic murmur is audible on exam. I will review her echo imaging. Her ventricle is small, and the pressure half-time on her aortic regurgitation Doppler envelope is very long implying only mild
aortic regurgitation. I am skeptical of the diagnosis of severe AI. Her diastolic pressure is low, but if she is inappropriately vasodilated this could also account for low diastolic BP
She is hypothyroid. Levothyroxine has been added. I also ordered a cortisol level and B12/folate and thiamine levels
Goals of care should probably be considered.
If an aggressive course of action is to be taken, most likely to be aggressive enteral feedings would probably treat the underlying issue which is malnutrition, though this is probably not in keeping with patient and family wishes.
I will speak with daughter.
Data Reviewed
-
EKG: Tracing Personally Visualized and interpreted (Today's tracing accelerated junctional rhythm with occasional sinus beats, borderline QT, indeterminate axis, cannot exclude inferior GA, low volts, cannot exclude lateral GA. October 2020: Sinus
rhythm, left axis, RSR prime, possible anterior ischemia 10/01/2024 sinus rhythm with PACs and aberrant con)
CT Scan: Image Personally Visualized and interpreted
MRI: Report Reviewed by me
Labs: Labs Reviewed by me (Most recent potassium 5.2, potassium had been normal throughout early hospital stay, was 3.2 yesterday, peak of 6.8 this morning, BUN/creatinine 48 and 0.7, white count 11.7, hemoglobin 11.6, proBNP was 3940 on 10/01,
magnesium 2.1, albumin 2.4)
Old Records: Reviewed
[2024-10-06 14:02] LABS: Glucose - Point of Care 196 mg/dl (70-99)
[2024-10-06 14:02] LABS: Blood Urea Nitrogen 48 mg/dl (7-17); Calcium 8.7 mg/dl (8.4-10.2); Carbon Dioxide 24 mmol/L (22-30); Chloride 106 mmol/L (98-107); Estimated Creatinine Clearance 33 ml/min; Glucose 168 mg/dl (70-99); Potassium 5.2 mmol/L (3.5-5.1); Sodium 137 mmol/L (135-145); eGFR > 60.00
[2024-10-06] MEDS: TYLENOL 650 MG PO (15:27)
[2024-10-06 16:06] LABS: Glucose - Point of Care 212 mg/dl (70-99)
[2024-10-06 16:43] LABS: Folate > 20.0 ng/ml (2.76-20); Vitamin B12 796 pg/ml (239-931)
[2024-10-06 18:29] LABS: Blood Urea Nitrogen 50 mg/dl (7-17); Carbon Dioxide 25 mmol/L (22-30); Chloride 103 mmol/L (98-107); Estimated Creatinine Clearance 33 ml/min; Glucose 136 mg/dl (70-99); Potassium 4.3 mmol/L (3.5-5.1); Sodium 134 mmol/L (135-145); eGFR > 60.00
[2024-10-06] MEDS: HEPARIN 5000 UNITS SC (20:50)
[2024-10-07] VITALS (8 sets, daily range): BP systolic 110–119; BP diastolic 49–69; PULSE 91; O2SAT 97–98
[2024-10-07 02:36] LABS: CA 19-9 13 U/mL (<=35)
[2024-10-07] MEDS: LOKELMA 10 GRAM PO (05:04)
[2024-10-07] MEDS: TYLENOL 650 MG PO (05:23)
[2024-10-07] MEDS: SYNTHROID 25 MCG PO (05:24)
[2024-10-07 06:10] LABS: Hematocrit 31.1 % (37.0-47.0); Hemoglobin 10.8 g/dL (12.0-16.0); Mean Corp Hgb Conc. 34.7 g/dL (33.0-37.0); Mean Corpuscular Hgb 33.9 pg (27.0-31.0); Mean Corpuscular Volume 97.5 fL (81.0-99.0); Mean Platelet Volume 9.6 fL (7.4-10.4); Platelet Count 318 10^3/uL (130-400); Red Blood Cell Count 3.19 10^6/uL (4.20-5.40); Red Cell Dist. Width 15.1 % (11.5-14.5); White Blood Cell Count 8.9 10^3/uL (4.8-10.8)
[2024-10-07 06:34] LABS: Blood Urea Nitrogen 49 mg/dl (7-17); Calcium 8.3 mg/dl (8.4-10.2); Carbon Dioxide 24 mmol/L (22-30); Chloride 105 mmol/L (98-107); Estimated Creatinine Clearance 38 ml/min; Glucose 122 mg/dl (70-99); Magnesium 1.9 mg/dl (1.6-2.3); Phosphorus 2.7 mg/dl (2.5-4.5); Potassium 3.8 mmol/L (3.5-5.1); Sodium 137 mmol/L (135-145); eGFR > 60.00
[2024-10-07] MEDS: TUMS EX (EXTRA STRENGTH) CHEWABLE TABLET 300 MG PO ×2 (07:59→19:59)
[2024-10-07] MEDS: VITAMIN C 500 MG PO (07:59)
[2024-10-07] MEDS: THERAGRAN 1 TABLET PO (07:59)
[2024-10-07] MEDS: VITAMIN D3 (cholecalciferol) 25 MCG PO (07:59)
[2024-10-07] MEDS: REFRESH EYE DROPS (PF) 1 DROPS LEFT EYE ×4 (07:59→20:00)
[2024-10-07] MEDS: HEPARIN 5000 UNITS SC ×2 (07:59→19:59)
[2024-10-07] MEDS: NON-FORMULARY ITEM 2 CAP PO ×3 (08:02→17:20)
--- NOTE | 2024-10-07 10:09 | W.PN.HOSP.TC ---
Today's Communication/Plan
-
appreciate specialists
PT/OT
will update daughter this afternoon
Assessment / Plan
Assessment / Plan
Cutaneous bilateral lower limb ulceration/blistering
-Per Dr. Lance: I spoke with daughter over the phone who is a physician in [facility]. Practices hospitalist medicine. She informs me that her mom has not been experiencing bilateral lower extremity edema/pedal edema that is been
progressively getting worse. Suspect likely fluid caused a blister which eventually ruptured to develop these bilateral cutaneous lesions.
-CT did not demonstrate adenopathy to suspect lymphoma nor was there evidence of solid lesions to suspect malignancy
-Continue local wound care
Anasarca/hypoalbuminemia and anorexic with a BMI less than 18 with severe protein calorie malnutrition
-SAAG 1.6, protein less than 2, however CT did not demonstrate cirrhosis
-GI
--S/p Egd: Mild Schatzki rings lower esophagus, hiatal hernia, erythema mucosa in the stomach, few gastric polyps
--MRCP concern for stricture or occult ampullary neoplasm, though stable compared to MRI abdomen from 03/11
--MRA/CTA - estimated luminal diameter reduction of < 50%, per vascular - no significant stenoses seen; and RO wouldn't be amenable to intervention
--CA 19-9 /CEA ordered
-Nutrition consult
-Does not want PEG tube as this does not align with goals of care
-2D echocardiogram w/o evidence of RWMA/EF 50-55%
-Laisx PRN
--- On discharge likely sent home with as needed diuretics for weight gain/lower extremity swelling. Would avoid daily as she has a baseline history of poor p.o. intake.
-will need to have further GOC discussions with daughter. Patient is very weak and deconditioned
Severe Aortic Insufficiency
-Will need outpatient follow up with cardiology
-lasix PRN
Hypothermia with lower extremity edema
-Goal normothermia
-Started levothyroxine
Atrial Tachycardia
-Recently started on levothyroxine 2 days ago low-dose 25 mcg.
-in setting of electrolyte abnormalities
-appreciate cardiology eval
Hypokalemia unclear as to etiology. Also 3.2, received 120 mcg of p.o. potassium as was on Lasix.
Hyperkalemia - s/p treatment 10/06; WNL this AM
Hypothyroidism
-Started levothyroxine
--If becomes tachycardic reduce dose by 25mcg
-Repeat TFTs in 4 to 6 weeks
History of L3 compression fracture
Osteoporosis
-On vitamin D, calcium, Prolia
History of pulmonary tuberculosis in 1974 status post treatment
Per her daughter Dr. Rosales Villanueva her who suffered a stroke 1 year ago also the physician.
PT/OT to eval
Anticipated Discharge: 24 - 48 hours
Subjective/Interval History
-
Date of Service: October 07, 2024
Objective Data
-
Labs:
Laboratory Results
10/07/24
05:20
WBC 8.9
Hgb 10.8 L
Hct 31.1 L
Plt Count 318
Sodium 137
Potassium 3.8
Chloride 105
Carbon Dioxide 24
BUN 49 H
Creatinine 0.6
Glucose 122 H
Calcium 8.3 L
Vital Signs:
Vital Signs
Temp Pulse Resp BP Pulse Ox
98.5 F 89 12 111/49 96
10/07/24 03:00 10/07/24 07:58 10/07/24 07:58 10/07/24 07:58 10/07/24 07:58
I&O
10/06/24 10/07/24 10/08/24
06:59 06:59 06:59
Intake Total 360 / 360 390 / 390
Output Total 500 / 500
Balance -140 / -140 390 / 390
--- NOTE | 2024-10-07 11:53 | CM ---
Patient seen at bedside with daughter and son in law, daughter, Hospitalist on phone. Family provided information about snf options they would like referrals to; [facility], [facility], [facility], [facility] and [facility]. CM sent referrals via all script.
Patient family aware patient soon for possible discharge but have concerns about patient eating. CM will continue to follow for discharge planning needs.
Plan; SNF pending acceptances.
[2024-10-07] MEDS: VITAMIN B1 100 MG PO (12:29)
--- NOTE | 2024-10-07 12:45 | W.PN.CARDCBS ---
Addendum entered and electronically signed by Chad Mcguire DO 10/07/24 13:48:
I saw and examined the patient.
[facility] note was reviewed and I agree with the note.
Comment:
Plan:
Stable from a cardiac standpoint.
HR and bp stable.
Tele reviewed with sinus with short atrial runs and PACs. These do not currently require tx
Cont nutritional supports.
Goals of care ongoing with her daughter who is a physician on the [facility].
Outpt follow up for severe AR.
Please recall if needed.
Original Note:
Today's Communication / Plan
-
Encouraged eating small frequent meals
Continue levothyroxine
PT/OT
If blood pressure allows could consider low-dose beta-nadiya
Will arrange for outpatient cardiology follow-up
Impression / Plan
-
PCP: Lg Hernandez
Flight Nurse: None prior to admission, initial consultation Cyril Mcbride
Impression:
Presented 10/01/2024 with decreased oral intake, edema and redness of lower extremities
Anasarca/ascites/malnutrition
Paroxysmal atrial tachycardia
Frequent PACs
Severe aortic regurgitation diagnosed by echo 09/2024
Hypothyroidism
Mild celiac artery stenosis
Hyperkalemia 10/06/2024
Ascites, SAAG with portal hypertension, paracentesis 1200 mL 10/03/2024
Pleural effusions bilaterally
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
Schatzki's ring
Hypoalbuminemia/malnutrition
Osteoporosis/L3 compression fracture
Echo 10/03/2024: EF 50-55% normal RV, normal atria, thickened mitral leaflets and mild mitral regurgitation, severe aortic regurgitation, thickened leaflets, mild tricuspid regurgitation, pulmonary artery pressure 20-25
Arterial Doppler 10/02/2024: Multiphasic waveforms both lower extremities, right TBI 0.7, left TBI 0.72, ABIs bilaterally 1.[address] chest, abdomen pelvis 10/02/2024: Moderate pleural effusions, ascites, severe sarcopenia throughout, pancreatic atrophy, no aortic aneurysm
Plan:
Presented 10/01/2024 with decreased oral intake, ascites, overall body swelling and redness of lower extremities
She presents with bursts of atrial tachycardia noted on telemetry 10/06/2024. This occurred in the setting of hyperkalemia with EKG changes, and seems to be improving. It is unclear whether this was happening earlier as she was not on telemetry
earlier in admission.
Per review of telemetry patient having sinus rhythm with frequent PACs with reasonable heart rate control.
Unfortunately, therapeutic options are very limited. She is hypotensive so beta-blockers and calcium blockers was cannot be used. Given recent electrolyte changes and prolonged QT, reluctant to use an agent such as amiodarone or other
antiarrhythmic drugs. Digoxin or amiodarone could be considered if absolutely necessary.
QTc has improved with normalization of potassium
Echo 10/03/2024 suggestive of severe aortic regurgitation. However patient has no significant audible murmur to indicate this. Her ventricle is small, and the pressure half-time on her aortic regurgitation Doppler envelope is very long implying only
mild aortic regurgitation.
Found to be hypothyroid which is new diagnosis with TSH 35.8, free T40.9 Levothyroxine has been added this admission. High folate level greater than 20, vitamin B12 796, random cortisol 44
Anasarca/hypoalbuminemia and anorexic with a BMI less than 18 with severe protein calorie malnutrition. If an aggressive course of action is to be taken, most likely to be aggressive enteral feedings would probably treat the underlying issue which
is malnutrition. Goals of care could also be considered. Patient is DNR
History of Present Illness 10/06/2024:
78-year-old woman with long history of underweight admitted with lower extremity edema , prior history of tuberculosis, L3 compression fracture. She has undergone endoscopy during this admission, also had an echo showing severe aortic
regurgitation, his celiac artery stenosis recently diagnosed with hypothyroidism and started on levothyroxine. 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 She was modestly hypokalemic
received 100 mL equivalents potassium, had a potassium of 6.9 this morning with EKG changes consistent with hyperkalemia with QT prolongation, now better with a potassium that is in the low fives. Monitor shows runs of rapid atrial tachycardia
lasting 10 seconds or so, cardiology consultation is requested. Of note, patient has a body mass of 32.6 kg as of today, body mass index is 12.3 patient is a DNR effective today. Daughter is a hospitalist who works in [facility] [employer].
Progress Note - Flight Nurse
Subjective
Date of Service: October 07, 2024
Patient seen and examined. Sitting in bed just completed eating lunch. Reports feels less bloated since paracentesis and appetite is improved some. Denies chest pain, shortness of breath, orthopnea, PND, palpitations, dizziness or lightheadedness
Objective
Labs:
10/07/24 05:20
10/07/24 05:20
Labs
Hgb 10.8 g/dL (12.0-16.0) L 10/07/24 05:20
Hct 31.1 % (37.0-47.0) L 10/07/24 05:20
Plt Count 318 10^3/uL (130-400) 10/07/24 05:20
PT 13.7 Sec (11.4-14.6) 10/04/24 05:26
INR 1.00 10/04/24 05:26
Sodium 137 mmol/L (135-145) 10/07/24 05:20
Potassium 3.8 mmol/L (3.5-5.1) 10/07/24 05:20
BUN 49 mg/dl (7-17) H 10/07/24 05:20
Creatinine 0.6 mg/dL (0.6-1.0) 10/07/24 05:20
Glucose 122 mg/dl (70-99) H 10/07/24 05:20
Vital Signs and I&O:
Vital Signs
Temp Pulse Resp BP Pulse Ox
97.6 F 93 14 113/56 98
10/07/24 12:21 10/07/24 12:21 10/07/24 12:21 10/07/24 12:21 10/07/24 12:21
Vital Signs
Temp Pulse Resp BP Pulse Ox
97.6 F 93 14 113/56 98
10/07/24 12:21 10/07/24 12:21 10/07/24 12:21 10/07/24 12:21 10/07/24 12:21
Intake & Output
10/05/24 10/06/24 10/07/24 10/08/24
06:59 06:59 06:59 06:59
Intake Total 360 / 360 390 / 390
Output Total 500 / 500
Balance -140 / -140 390 / 390
Physical Exam
Physical Exam
GEN: No distress, awake, Ox3, thin elderly female sitting up in bed
HEENT: supple, anicteric, mmm
LUNGS: Mildly decreased at bases otherwise CTA, no wheezes/rales
CV: Reg with frequent ectopy noted, S1/S2, no murmur, rub or gallop
ABD: soft, BS+, NT/ND
EXT: Legs wrapped in Vidal bandages, no edema
NEURO: Gross non-focal
SKIN: No rash, warm, dry, pink
--- NOTE | 2024-10-07 14:51 | W.PN.GI.CBS2 ---
Today's Communication / Plan
-
gi signing off
Assessment / Plan
-
78-year-old female with history of pulmonary TB status post treatment, history of gastric intestinal metaplasia with low-grade dysplasia on previous upper endoscopies, history of dilated common bile duct status post ERCP, sphincterotomy with
brushings showing atypical cells, presenting with lower extremity edema, blisters, anasarca and CT scan of the abdomen and pelvis showing ascites. Paracentesis performed, SAAG suggesting portal hypertension etiology for the ascites, total protein <
2 ruling out cardiac etiology. She does have postprandial abdominal pain, significant weight loss, cachectic looking at this time and labs showing hypoalbuminemia. LFTs within normal limits. MRI in 2019 showing mild stenosis of celiac axis,
widely patent SMA and small but patent RO. She was supposed to follow-up in our office for repeat EGD/imaging but declined testing.
This admission we have done EGD (gastritis, Schiatzki ring, HH, gastric polyp path pending but no suspicious lesions); MRI/MRCP (bile duct dilation, stable from 2021); large volume ascites; severe anasarca; large bilateral pleural effusions; MRA (A
component of mild narrowing is suggested at the origin of celiac artery, though the degree of narrowing is difficult to assess with certainty. CTA done - I d/w vascular today - SMA and celiac both patent without significant stenosis, RO would not
cause post prandial pain and RO is tiny and would not be amenable to any intervention even if indicated which it is not.
D/w daughter Dr. Rosales Villanueva in detail today.
No role for repeat para pt comfortable, only 1300L drained on 10/03.
D/w hospitalist. Will sign off pls call with ?s
Subjective
Subjective
Date of Service: October 07, 2024
No events CTA done
Objective
Data Reviewed
Laboratory Data:
Laboratory Results
10/07/24 05:20
10/07/24 05:20
Laboratory Results
PT 13.7 Sec (11.4-14.6) 10/04/24 05:26
INR 1.00 10/04/24 05:26
Phosphorus 2.7 mg/dl (2.5-4.5) 10/07/24 05:20
Magnesium 1.9 mg/dl (1.6-2.3) 10/07/24 05:20
Total Bilirubin 0.6 mg/dl (0.2-1.3) 10/04/24 05:26
AST 26 U/L (14-36) 10/04/24 05:26
ALT 19 U/L (0-35) 10/04/24 05:26
Alkaline Phosphatase 59 U/L (38-126) 10/04/24 05:26
Vital Signs and I&O:
Vital Signs
Temp Pulse Resp BP Pulse Ox
97.6 F 93 14 113/56 98
10/07/24 12:21 10/07/24 12:21 10/07/24 12:21 10/07/24 12:21 10/07/24 12:21
I&O
10/06/24 10/07/24 10/08/24
06:59 06:59 06:59
Intake Total 360 / 360 390 / 390
Output Total 500 / 500
Balance -140 / -140 390 / 390
Physical Exam
Physical Exam
HEENT: Anicteric and Other (cachetic)
GI: Non Distended and Non Tender
[2024-10-08 03:44] VITALS: BP 90/53
[2024-10-08] MEDS: SYNTHROID 25 MCG PO (05:34)
[2024-10-08 06:00] VITALS: BMI 12.2
[2024-10-08] MEDS: TYLENOL 650 MG PO (06:04)
[2024-10-08 07:02] LABS: Blood Urea Nitrogen 43 mg/dl (7-17); Calcium 8.3 mg/dl (8.4-10.2); Carbon Dioxide 27 mmol/L (22-30); Chloride 108 mmol/L (98-107); Estimated Creatinine Clearance 38 ml/min; Glucose 105 mg/dl (70-99); Magnesium 1.9 mg/dl (1.6-2.3); Phosphorus 2.3 mg/dl (2.5-4.5); Potassium 3.3 mmol/L (3.5-5.1); Sodium 138 mmol/L (135-145); eGFR > 60.00
[2024-10-08 07:33] VITALS: BP 109/59
[2024-10-08] MEDS: VITAMIN D3 (cholecalciferol) 25 MCG PO (08:12)
[2024-10-08] MEDS: REFRESH EYE DROPS (PF) 1 DROPS LEFT EYE ×2 (08:12→12:02)
[2024-10-08] MEDS: VITAMIN C 500 MG PO (08:12)
[2024-10-08] MEDS: VITAMIN B1 100 MG PO (08:12)
[2024-10-08] MEDS: THERAGRAN 1 TABLET PO (08:12)
[2024-10-08] MEDS: TUMS EX (EXTRA STRENGTH) CHEWABLE TABLET 300 MG PO (08:12)
[2024-10-08] MEDS: NON-FORMULARY ITEM 2 CAP PO ×2 (08:12→12:02)
[2024-10-08] MEDS: HEPARIN 5000 UNITS SC (08:13)
--- NOTE | 2024-10-08 10:28 | W.PN.HOSP.TC ---
Today's Communication/Plan
-
DC to SNF today
Assessment / Plan
Assessment / Plan
Cutaneous bilateral lower limb ulceration/blistering
-Per Dr. Lance: I spoke with daughter over the phone who is a physician in [facility]. Practices hospitalist medicine. She informs me that her mom has not been experiencing bilateral lower extremity edema/pedal edema that is been
progressively getting worse. Suspect likely fluid caused a blister which eventually ruptured to develop these bilateral cutaneous lesions.
-CT did not demonstrate adenopathy to suspect lymphoma nor was there evidence of solid lesions to suspect malignancy
-Continue local wound care
-DC with lasix MOWEFR
Anasarca/hypoalbuminemia and anorexic with a BMI less than 18 with severe protein calorie malnutrition
-SAAG 1.6, protein less than 2, however CT did not demonstrate cirrhosis
-GI
--S/p Egd: Mild Schatzki rings lower esophagus, hiatal hernia, erythema mucosa in the stomach, few gastric polyps
--MRCP concern for stricture or occult ampullary neoplasm, though stable compared to MRI abdomen from 03/11
--MRA/CTA - estimated luminal diameter reduction of < 50%, per vascular - no significant stenoses seen; and RO wouldn't be amenable to intervention
--CA 19-9 /CEA ordered
-Nutrition consult
-Does not want PEG tube as this does not align with goals of care
-2D echocardiogram w/o evidence of RWMA/EF 50-55%
lasix MOWEFR
plan to DC to SNF today
Severe Aortic Insufficiency
-Will need outpatient follow up with cardiology
-lasix PRN
Hypothermia with lower extremity edema
-Goal normothermia
-Started levothyroxine
Atrial Tachycardia
-Recently started on levothyroxine 2 days ago low-dose 25 mcg.
-in setting of electrolyte abnormalities
-appreciate cardiology eval
Hypokalemia
-treat
Hypothyroidism
-Started levothyroxine
--If becomes tachycardic reduce dose by 25mcg
-Repeat TFTs in 4 to 6 weeks
History of L3 compression fracture
Osteoporosis
-On vitamin D, calcium, Prolia
History of pulmonary tuberculosis in 1974 status post treatment
Per her daughter Dr. Caba Rim her who suffered a stroke 1 year ago also the physician.
PT/OT to eval
Anticipated Discharge: Today
Subjective/Interval History
-
Date of Service: October 08, 2024
no new questions or complaints
Objective Data
-
Labs:
Laboratory Results
10/08/24
05:14
Sodium 138
Potassium 3.3 L
Chloride 108 H
Carbon Dioxide 27
BUN 43 H
Creatinine 0.5 L
Glucose 105 H
Calcium 8.3 L
Vital Signs:
Vital Signs
Temp Pulse Resp BP Pulse Ox
97.8 F 86 18 109/59 97
10/08/24 07:33 10/08/24 07:33 10/08/24 07:33 10/08/24 07:33 10/08/24 08:41
I&O
10/07/24 10/08/24 10/09/24
06:59 06:59 06:59
Intake Total 390 / 390
Balance 390 / 390
Review of Systems
-
History Source: Patient
All other systems: Reviewed and negative
Physical Exam
-
General: Other (very frail appearing)
HEENT: PERRLA
Respiratory: Clear to Auscultation; Negative Wheezes
Cardiac: S1/S2
GI: Soft and Nontender
Musculoskeletal: No Edema
Skin: Warm and Dry; Negative Rash
Neuro: Awake, Alert and Oriented
Psych: Calm
Data Reviewed
-
Diagnostic Radiology: Report Reviewed by me
Labs: Labs Reviewed by me
--- NOTE | 2024-10-08 10:40 | W.DS.TRANS ---
DC Summary - Child Protective Investigator
-
Discharge Instructions:
Discharge Diagnosis/Procedures anasarca, poor nutrition
Diet Regular
Additional Diets provide ensure
Activity As tolerated
Driving Restrictions No driving
Bathing Restrictions None
Blood Work BMP, Magnesium, Phosphorous on 10/14/24; TSH in 4
-6 weeks
Other Services PT,OT
Instructions:
Stand-Alone Forms:
Changes to Home Medications: Yes
Discharge Medications:
DC Medications w/original date entered in [employer]
ascorbic acid (vitamin C) 500 mg tablet (Vitamin C) 500 mg PO DAILY Supplement 10/01/24
calcium carbonate (Calcium 600) 600 mg PO BID Supplement 10/01/24
cholecalciferol (vitamin D3) 25 mcg (1,000 unit) tablet (Vitamin D3) 25 mcg PO DAILY Supplement 10/01/24
denosumab 60 mg/mL subcutaneous syringe (Prolia) 60 mg SC [id number] osteoporosis 10/01/24
digestive enzymes 2 cap PO MEALS probiotic 10/01/24
therapeutic multivitamin 1 tab PO DAILY Supplement 10/01/24
furosemide 20 mg tablet 20 mg PO MOWEFR #30 tabs 10/08/24
furosemide 20 mg tablet (Lasix) 20 mg PO DAILY PRN Weight gain or swelling #30 tabs 10/08/24
levothyroxine 25 mcg tablet 25 mcg PO DAILY @ 0600 #30 tabs 10/08/24
thiamine mononitrate (vit B1) 100 mg tablet 100 mg PO DAILY #30 tabs 10/08/24
Home Medication Changes
You are newly started on Lasix Mondays, Wednesdays and Fridays. Eat food higher in Potassium on these days.
You are also prescribed extra Lasix as needed if you have worsened swelling or weight gain > 2 lbs in one day or 5 lbs in one week.
You are newly started on Levothyroxine. Your thyroid levels will be rechecked in 4-6 weeks.
You are started on thiamine.
Pending Results: No
[2024-10-08] MEDS: KCL 40 MEQ PO (10:45)
--- NOTE | 2024-10-08 11:42 | WOUNDNOTE ---
WON RN NOTE: Followed up today via nurse Nadia who did dressing this morning on legs. Compared to last pictures nurse reports less redness but some blisters still have yellow at base. For discharge today, will recommend in discharge instructions to
start Santyl daily with same dressing. Nurse aware and updated instructions.
--- NOTE | 2024-10-08 13:04 | W.DCSUMMARY ---
Discharge Summary
Discharge Data
Date of Admission: 10/01/24
Date of Discharge: 10/08/24
-
Pending Results: No
Hospital Course
Discharging Physician : Dr. Sarita Sage
Disposition : SNF
Primary care physician : Dr. Lg Hernandez
Principal Discharge diagnosis : Anasarca, Anorexia
Hospital Course :
Ms. Flo Villanueva is a 78 yo woman with hx pulmonary tuberculosis 1977 s/p treatment, L3 compression fracture, osteoporosis, poor PO intake s/p extensive work-up presents to the ER with lower extremity swelling and blisters in lower extremities. Triage
vitals with pulse 106, BP 111/51, SpO2 100% RA. Labs without leukocytosis, normal renal function.
Patient was admitted to medicine, lower extremity blistering thought 2/2 fluid/anasarca. She was diuresed. She is ordered for Lasix MOWEFR and as needed with close follow up labs. Local wound care will be continued.
Regarding poor PO intake. She underwent extensive work up with EGD, MRCP, MRA/CTA (results below). 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
indicated.
Patient is frail, per family her weight has been this low for many years. Decision made to send to SNF to work on physical strength. Continue to monitor electrolytes closely on Lasix.
Time spent on discharge was 40 minutes.
Important imaging findings :
Extremity Arterial Study:
IMPRESSION:
Somewhat limited study due to presence of bandages bilaterally
RIGHT LOWER EXTREMITY: MARQUEZ perhaps falsely elevated at 1.33. TBI within normal limits at 0.70. Arterial duplex examination reveals multiphasic waveforms from the common femoral artery through the popliteal artery with no focal velocity elevations
to suggest significant stenosis. Multiphasic continuous Doppler waveforms are demonstrated in the posterior tibial artery and dorsalis pedis artery.
LEFT LOWER EXTREMITY: MARQUEZ falsely elevated at 1.55. TBI within normal limits at 0.70. Arterial duplex examination reveals multiphasic waveforms from the common femoral artery through the popliteal artery with no focal velocity elevations to
suggest significant stenosis. Multiphasic continuous Doppler waveforms are demonstrated in the posterior tibial artery and dorsalis pedis artery.
Abdomen US:
IMPRESSION:
Moderate abdominal ascites
CT chest/abdomen/pelvis 10/02/24
IMPRESSION:
No adenopathy. The spleen is normal in size. No anatomic evidence to suggest lymphoma.
Cachexia. Anasarca. Pleural effusions. Ascites.
Diverticulosis without acute diverticulitis.
Possible mild ileus.
Chronic parenchymal scarring. No evidence of pneumonia.
Stable diffuse dilatation of the common bile duct without intrahepatic ductal dilatation. Possibly on the basis of previous obstructive process, or perhaps representing type 1c choledochocyst. There is a tiny focus of gas within the central left
intrahepatic biliary tree, possibly on the basis of previous biliary-enteric manipulation in the proper clinical setting.
Abdomen MRI 10/04/24
IMPRESSION:
1. No MRCP evidence for choledocholithiasis.
2. Bile duct dilatation with significantly dilated extrahepatic bile ducts, mildly dilated intrahepatic bile ducts, and mild main pancreatic ductal dilatation within the head of the pancreas. Findings could be secondary to a stricture or occult
ampullary neoplasm but the imaging appearance is essentially stable compared to the MRI abdomen from 03/02/2022.
3. Large volume abdominopelvic ascites.
4. Severe anasarca.
5. Large bilateral pleural effusions.
MRA
IMPRESSION:
Limited by image degradation secondary to respiration as well as presence of a large amount of ascites.
A component of mild narrowing is suggested at the origin of celiac artery, though the degree of narrowing is difficult to assess with certainty. This may be better evaluated with CT angiography. No poststenotic dilatation of the celiac artery.
Ascites.
Bilateral pleural effusions.
CTA ABDOMEN
No aortic aneurysm or dissection.
Mild aortic calcified plaque.
Moderate calcified plaque of the aorta at the level of the celiac artery and at the celiac artery origin. The celiac artery is patent. Estimated luminal diameter reduction of less than 50%. No dissection.
Superior mesenteric artery is widely patent. No thrombus. No dissection.
Calcified plaque involving the proximal inferior mesenteric artery, with approximately 50% luminal diameter reduction.
Individual bilateral renal arteries. Mild calcified plaque at the origin of the right renal artery, with estimated luminal diameter reduction of less than 50%.
No other significant interval change.
Procedure findings :
EGD 10/04/24
Impression: - Normal esophagus.
- Mild Schatzki ring.
- Small hiatal hernia.
- Erythematous mucosa in the stomach. Biopsied.
- A few gastric polyps. Resected and retrieved.
- Normal examined duodenum.
- Duodenal diverticulum.
Recommendation: - Resume regular diet.
- Continue present medications.
- Await pathology results.
- Plan MRI next step. D/w daughter Rosales.
Discharge Plan
-
Patient Disposition: Jail/SNF
Discharge Diagnosis/Procedures: anasarca, poor nutrition
Diet: Regular
Additional Diets: provide ensure
Activity: As tolerated
Driving Restrictions: No driving
Bathing Restrictions: None
Blood Work: BMP, Magnesium, Phosphorous on 10/14/24; TSH in 4-6 weeks
Other Services: PT and OT
Activity Restrictions/Additional Instructions:
Wound Care Instructions
legs: clean with soap and water, Xeroform, ABD pads and petros daily and prn drainage.(*Recommend Santyl daily if blisters on legs remain sloughy)
alexander wraps knee high daily, can remove at bedtime.
leg elevation when sitting
air chair cushion when sitting, can take upon discharge
increase protein in diet
Follow up at wound care center call for an appointment.
Referrals:
Cyril Mcbride MD [Active] - 11/22/24 2:20 pm (You have cardiology follow-up with Dr. Cyril Mcbride on November 22 at 2:20 PM in [place] at the [facility] which is located at [address] [place] [address] in [place], [place]. If you are unable to
make this appointment please call [phone] to reschedule)
Lg Hernandez, DO [Family Provider] - in less than 1 week
Additional Discharge Medication Instructions: You are newly started on Lasix Mondays, Wednesdays and Fridays. Eat food higher in Potassium on these days.
You are also prescribed extra Lasix as needed if you have worsened swelling or weight gain > 2 lbs in one day or 5 lbs in one week.
You are newly started on Levothyroxine. Your thyroid levels will be rechecked in 4-6 weeks.
You are started on thiamine.
Prescriptions:
New
levothyroxine 25 mcg Tablet
25 mcg PO DAILY @ 0600 Qty: 30 0RF
furosemide 20 mg Tablet
20 mg PO MOWEFR Qty: 30 0RF
thiamine mononitrate (vit B1) 100 mg Tablet
100 mg PO DAILY Qty: 30 0RF
furosemide [Lasix] 20 mg tablet
20 mg PO DAILY PRN (Reason: Weight gain or swelling) Qty: 30 0RF
Rx Instructions:
Take as needed on Monday, , Monday or Monday
Continued
digestive enzymes Capsule
2 cap PO MEALS
therapeutic multivitamin Tablet
1 tab PO DAILY
ascorbic acid (vitamin C) [Vitamin C] 500 mg Tablet
500 mg PO DAILY
Prolia 60 mg/mL Syringe
60 mg SC [id number]
calcium carbonate [Calcium 600] 600 mg calcium (1,500 mg) Tablet
600 mg PO BID
cholecalciferol (vitamin D3) [Vitamin D3] 25 mcg (1,000 unit) Tablet
25 mcg PO DAILY
Discharge Orders:
Discharge Patient (As Directed); Ordered 10/08/24
Ordered By: Sarita Sage
Discharge Date and Time
Print Language: LATVIAN
--- NOTE | 2024-10-08 13:10 | CM ---
entered order for discharge.
[facility] at [facility] has a bed today.
Spoke with Rosales mccall she is in agreement with IMM and discharge.
Medical nec form completed.
Angel
report [phone]
fax [phone]
PLAN To [facility]
[2024-10-08 13:16] VITALS: BP 127/66
[2024-10-09 12:53] LABS: Vitamin B1, Whole Blood 198 nmol/L (70-180)
== END 2024-10-08 14:39 | DRG 592 ==
LOC: 3 WEST ACU 23:44
PROVIDERS: Emergency Medicine; Hospitalist; Internal Medicine Gastroenterology; Nurse Practitioner Adult Health; Radiology Diagnostic Radiology; ADMITTING PHYSICIAN Hospitalist; ATTENDING PHYSICIAN Student in an Organized Health Care Education/Training Program; CONSULT PHYSICIAN Internal Medicine Cardiovascular Disease; EMERGENCY PHYSICIAN Student in an Organized Health Care Education/Training Program; FAMILY PHYSICIAN Internal Medicine; OTHER PHYSICIAN Internal Medicine Gastroenterology; OTHER PHYSICIAN Surgery Vascular Surgery
PROC: 0W9G3ZZ Drainage of Peritoneal Cavity, Percutaneous Approach (ICD-10-PCS; 2024-10-03)
PROC: 0DB78ZX Excision of Stomach, Pylorus, Via Natural or Artificial Opening Endoscopic, Diagnostic (ICD-10-PCS; 2024-10-04)
PROC: 0DB68ZX Excision of Stomach, Via Natural or Artificial Opening Endoscopic, Diagnostic (ICD-10-PCS; 2024-10-04)
PROC: 0DB68ZZ Excision of Stomach, Via Natural or Artificial Opening Endoscopic (ICD-10-PCS; 2024-10-04)
DX: L97.829 Non-pressure chronic ulcer of other part of left lower leg with unspecified severity (principal); E43 Unspecified severe protein-calorie malnutrition; R18.8 Other ascites; R64 Cachexia; Z68.1 Body mass index [BMI] 19.9 or less, adult; E87.1 Hypo-osmolality and hyponatremia; K76.6 Portal hypertension; I47.19 Other supraventricular tachycardia; J90 Pleural effusion, not elsewhere classified; Z66 Do not resuscitate; L97.819 Non-pressure chronic ulcer of other part of right lower leg with unspecified severity; E88.09 Other disorders of plasma-protein metabolism, not elsewhere classified; M81.0 Age-related osteoporosis without current pathological fracture; Z86.11 Personal history of tuberculosis; K22.2 Esophageal obstruction; K44.9 Diaphragmatic hernia without obstruction or gangrene; K31.7 Polyp of stomach and duodenum; K31.A0 Gastric intestinal metaplasia, unspecified; K57.10 Diverticulosis of small intestine without perforation or abscess without bleeding; R68.0 Hypothermia, not associated with low environmental temperature; E03.9 Hypothyroidism, unspecified; L89.151 Pressure ulcer of sacral region, stage 1; E87.6 Hypokalemia; I35.1 Nonrheumatic aortic (valve) insufficiency; E87.5 Hyperkalemia; D50.9 Iron deficiency anemia, unspecified
CPT/HCPCS: 88305; 49083; 71260; 74175; 74177; 74183; 74185; 76705; 80048; 80053; 80202; 81003; 82042; 82533; 82570; 82607; 82746; 82962; 83605; 83615; 83735; 83880; 84100; 84132; 84156; 84157; 84425; 84439; 84443; 85025; 85027; 85610; 85652; 86140; 86301; 87040; 87070; 87071; 87147; 87186; 87205; 88112; 88342; 89051; 93005; 93306; 93922; 93925; 97163; 97167; 97530; 99285; A9575; A9585; Q9967

== ENCOUNTER 2024-11-14 02:12 | Inpatient (IN) | payer MEDICARE, BC, SELFPAY ==
[2024-11-13 22:25] VITALS: BP 125/57
[2024-11-13 22:31] VITALS: BP 125/57
[2024-11-13 22:59] LABS: B.E. 8.1 mmol/L; O2 Saturation % 98.2 % (94-98); PCO2 41 mmHg (32-35); PO2 188 mmHg (83-108)
[2024-11-13 23:00] VITALS: BP 121/53
[2024-11-13 23:04] LABS: Venous Blood Gas B.E. 5.3 mmol/L (-4 to +4); Venous Blood Gas HCO3 31.4 mmol/L (22-27); Venous Blood Gas pCO2 53 mmHg (35-48); Venous Blood Gas pH 7.38 (7.32-7.43); Venous Blood Gas pO2 77 mmHg (30-50)
[2024-11-13 23:06] LABS: Hematocrit 28.6 % (37.0-47.0); Hemoglobin 9.6 g/dL (12.0-16.0); Mean Corp Hgb Conc. 33.6 g/dL (33.0-37.0); Mean Corpuscular Hgb 33.1 pg (27.0-31.0); Mean Corpuscular Volume 98.6 fL (81.0-99.0); Platelet Count 203 10^3/uL (130-400); Red Cell Dist. Width 14.3 % (11.5-14.5)
[2024-11-13 23:20] LABS: COVID-19 Antigen Negative (Negative)
[2024-11-13 23:22] LABS: Lactic Acid 3.2 mmol/L (0.7-2.0)
--- NOTE | 2024-11-13 23:22 | ED.GENMED ---
History of Present Illness
<Ellis Huber PA-C - Last Filed: 11/14/24 00:32>
General
Chief Complaint: Breathing Problem
Time Seen by Provider: 11/13/24 22:31
History of Present Illness
History of Present Illness:
78-year-old female presents to the emergency department from [facility] for evaluation of increased work of breathing. Daughter had been with the patient today, had briefly taken her out of her nursing facility and states she had been doing
well with only complaints of nausea and reportedly a dry cough for the past week or more. No fevers were reported. They returned her to the nursing facility then left to attend a volleyball game at which time they were notified of sudden
difficulty breathing. On family's arrival to the nursing facility the patient's was in respiratory distress, there were no signs of food or vomitus near the patient. On arrival she is on nasal cannula and nonrebreather at maximum flow volume but
remains tachypneic with audible rhonchi. Patient cannot provide any history at this time. According to daughter she is DNR/DNI. Was recently admitted here for anasarca and was started on diuretics, at that time she had an unremarkable
echocardiogram
Review of Systems
<Ellis Huber PA-C - Last Filed: 11/14/24 00:32>
Review of Systems
Allergies reviewed?: Yes
All Other Systems: ROS reviewed and negative except as documented in HPI and ROS
Phy Exam
<Ellis Huber PA-C - Last Filed: 11/14/24 00:32>
Physical Exam
Physical Exam:
GEN: Markedly frail and cachectic with bitemporal wasting, in acute respiratory distress
HEENT: Oral mucosa moist, no scleral icterus
Cardiac: Tachycardic, regular, no murmur
Lung: Acute respiratory distress with tachypnea and accessory muscle use, coarse rhonchi heard throughout all lung monzon
MSK: No gross deformity or injuries
Skin: Generally pale
Neuro: Alert, follows commands, nonverbal and very hard of hearing
Psych: Appears anxious
Scores
<Ellis Huber PA-C - Last Filed: 11/14/24 00:32>
Heart Failure Risk
Heart Failure Risk Score: Yes
History of Stroke or TIA: No
History of intubation for respiratory distress: No
Heart rate on ED arrival >/= 110: Yes
SaO2 <90% on arrival on room air: Yes
HR >/=110 during 3min walk test (or too ill to perform test): Yes
ECG has acute ischemic changes: No
Urea >/=12mmol/L (BUN 33.6mg/dL): No
Serum CO2>/=35mmol/L: Yes
Troponin I or T elevated to IL Level (0.4mg/dL): Yes
NT-proBNP >/=5,000ng/L (5,000pg/ml): Yes
HF Risk Score: 8
Admission Status: VERY HIGH RISK 81.2% Consider admission to hospital
Sepsis
<Ellis Huber PA-C - Last Filed: 11/14/24 00:32>
Sepsis Screening
Sepsis Assessment: Severe Sepsis
Sepsis Screening: Lactate >2mmol/L and Need for mechanical ventilation or BiPAP
Sepsis Screen
Sepsis Screen: Severe Sepsis
Date: 11/14/24
Time: 00:32
Course
<Ellis Huber PA-C - Last Filed: 11/14/24 00:32>
Orders/Labs/Results
Orders:
Orders
11/13/24 22:33
Electrocardiogram (*1) Urgent
Reason for Study: QTc Monitoring
EKG- Treatment ONCE
CR Chest Portable - 1 View Urgent
Comment:
Reason For Exam: SOB
Reason Study Needs to be Portable: Other
11/13/24 22:43
O2 Therapy [RESP] Urgent
Titrate/Wean O2 to maintain O2 sat greater than (%): 95
11/13/24 22:49
COVID-19 Antigen Urgent
Source: Nasal Swab
Complete Blood Count/With Diff Urgent
Comprehensive Metabolic Panel Urgent
Lactic Acid Q4H
Comment: CANCEL 2nd LACTIC ACID IF 1st LACTIC ACID IS LESS THAN 2
NT-proBNP Urgent
Procalcitonin Urgent
PCT Algorithmm Indication: Respiratory
Troponin I Urgent
Venous Blood Gas Urgent
%Oxygen/Room Air: unknown
Blood Culture Q30M
JANAE Source: Blood/Venous
Specimen Description:
Influenza A+B Rapid Molecular Urgent
JANAE Source: Nasal Swab
Specimen Description:
11/13/24 22:50
ABG [Arterial Blood Gas] Urgent
%Oxygen/Room Air: unknown
Blood Culture Q30M
JANAE Source: Blood/Venous
Specimen Description:
11/13/24 22:59
Ipratropium/Albuterol Sulfate [Duoneb] 3 ml INH R NOW ONE
11/13/24 23:12
Cefepime HCl [Maxipime] 2,000 mg IV NOW STA
Vancomycin 1 Gram/200 ml [Vancocin] 1 gram in 200 ml IV NOW
11/13/24 23:41
0.9% Sodium Chloride 500 ml [Nss] 500 ml IV BOLUS
11/14/24 00:01
CT Chest PE Study Urgent
Reason For Exam: SOB
11/14/24 00:24
Furosemide [Lasix] 20 mg IV ONCE ONE
11/14/24 00:25
EKG [Electrocardiogram (*1)] Urgent
Reason for Study: Shortness of Breath
11/14/24 02:45
Lactic Acid Q4H
Comment: CANCEL 2nd LACTIC ACID IF 1st LACTIC ACID IS LESS THAN 2
Abnormal Lab Results
11/13/24 11/13/24
22:49 22:50
WBC 14.0 H 10^3/uL
(4.8-10.8)
RBC 2.90 L 10^6/uL
(4.20-5.40)
Hgb 9.6 L g/dL
(12.0-16.0)
Hct 28.6 L %
(37.0-47.0)
MCH 33.1 H pg
(27.0-31.0)
Abs Immat Gran (auto) 0.2 H 10^3/uL
(0-0.05)
Absolute Neuts (auto) 13.2 H 10^3/uL
(1.4-6.5)
Absolute Lymphs (auto) 0.4 L 10^3/uL
(1.2-3.4)
Immature Gran % 1.1 H %
(0-0.5)
Neutrophils % 94.2 H %
(42.2-75.2)
Lymphocytes % 3.1 L %
(20.5-51.1)
Monocytes % 1.5 L %
(1.7-9.3)
pH 7.50 H
(7.35-7.45)
pCO2 41 H mmHg
(32-35)
pO2 188 H mmHg
(83-108)
HCO3 32.0 H mmol/L
(21-28)
ABG O2 Sat (Measured) 98.2 H %
(94-98)
VBG pCO2 53 H mmHg
(35-48)
VBG pO2 77 H mmHg
(30-50)
VBG HCO3 31.4 H mmol/L
(22-27)
Carbon Dioxide 33 H mmol/L
(22-30)
BUN 49 H mg/dl
(7-17)
Lactic Acid 3.2 H mmol/L
(0.7-2.0)
Troponin I 0.315 H* ng/ml
Total Protein 4.6 L g/dl
(6.3-8.2)
Albumin 2.2 L g/dl
(3.5-5.0)
Procalcitonin 3.10 H* ng/ml
(0.0-0.25)
11/13/24 22:49
11/13/24 22:49
Vital Signs
Initial and Last Documented VS:
Initial Vital Signs
Pulse Resp BP Pulse Ox
102 22 125/57 92
11/13/24 22:25 11/13/24 22:25 11/13/24 22:25 11/13/24 22:25
Last Documented Vital Signs
Temp Pulse Resp BP Pulse Ox
97.3 F 109 17 121/53 92
11/13/24 23:25 11/13/24 23:15 11/13/24 23:15 11/13/24 23:00 11/13/24 22:25
<Michael Franco, - Last Filed: 11/13/24 23:43>
Orders/Labs/Results
Orders:
Orders
11/13/24 22:33
Electrocardiogram (*1) Urgent
Reason for Study: QTc Monitoring
EKG- Treatment ONCE
CR Chest Portable - 1 View Urgent
Comment:
Reason For Exam: SOB
Reason Study Needs to be Portable: Other
11/13/24 22:43
O2 Therapy [RESP] Urgent
Titrate/Wean O2 to maintain O2 sat greater than (%): 95
11/13/24 22:49
COVID-19 Antigen Urgent
Source: Nasal Swab
Complete Blood Count/With Diff Urgent
Comprehensive Metabolic Panel Urgent
Lactic Acid Q4H
Comment: CANCEL 2nd LACTIC ACID IF 1st LACTIC ACID IS LESS THAN 2
NT-proBNP Urgent
Procalcitonin Urgent
PCT Algorithmm Indication: Respiratory
Troponin I Urgent
Venous Blood Gas Urgent
%Oxygen/Room Air: unknown
Blood Culture Q30M
JANAE Source: Blood/Venous
Specimen Description:
Influenza A+B Rapid Molecular Urgent
JANAE Source: Nasal Swab
Specimen Description:
11/13/24 22:50
ABG [Arterial Blood Gas] Urgent
%Oxygen/Room Air: unknown
Blood Culture Q30M
JANAE Source: Blood/Venous
Specimen Description:
11/13/24 22:59
Ipratropium/Albuterol Sulfate [Duoneb] 3 ml INH R NOW ONE
11/13/24 23:12
Cefepime HCl [Maxipime] 2,000 mg IV NOW STA
Vancomycin 1 Gram/200 ml [Vancocin] 1 gram in 200 ml IV NOW
11/13/24 23:41
0.9% Sodium Chloride 500 ml [Nss] 500 ml IV BOLUS
11/14/24 00:01
CT Chest PE Study Urgent
Reason For Exam: SOB
11/14/24 00:24
Furosemide [Lasix] 20 mg IV ONCE ONE
11/14/24 00:25
EKG [Electrocardiogram (*1)] Urgent
Reason for Study: Shortness of Breath
11/14/24 02:45
Lactic Acid Q4H
Comment: CANCEL 2nd LACTIC ACID IF 1st LACTIC ACID IS LESS THAN 2
Abnormal Lab Results
11/13/24 11/13/24
22:49 22:50
WBC 14.0 H 10^3/uL
(4.8-10.8)
RBC 2.90 L 10^6/uL
(4.20-5.40)
Hgb 9.6 L g/dL
(12.0-16.0)
Hct 28.6 L %
(37.0-47.0)
MCH 33.1 H pg
(27.0-31.0)
Abs Immat Gran (auto) 0.2 H 10^3/uL
(0-0.05)
Absolute Neuts (auto) 13.2 H 10^3/uL
(1.4-6.5)
Absolute Lymphs (auto) 0.4 L 10^3/uL
(1.2-3.4)
Immature Gran % 1.1 H %
(0-0.5)
Neutrophils % 94.2 H %
(42.2-75.2)
Lymphocytes % 3.1 L %
(20.5-51.1)
Monocytes % 1.5 L %
(1.7-9.3)
pH 7.50 H
(7.35-7.45)
pCO2 41 H mmHg
(32-35)
pO2 188 H mmHg
(83-108)
HCO3 32.0 H mmol/L
(21-28)
ABG O2 Sat (Measured) 98.2 H %
(94-98)
VBG pCO2 53 H mmHg
(35-48)
VBG pO2 77 H mmHg
(30-50)
VBG HCO3 31.4 H mmol/L
(22-27)
Carbon Dioxide 33 H mmol/L
(22-30)
BUN 49 H mg/dl
(7-17)
Lactic Acid 3.2 H mmol/L
(0.7-2.0)
Troponin I 0.315 H* ng/ml
Total Protein 4.6 L g/dl
(6.3-8.2)
Albumin 2.2 L g/dl
(3.5-5.0)
Procalcitonin 3.10 H* ng/ml
(0.0-0.25)
11/13/24 22:49
11/13/24 22:49
Vital Signs
Initial and Last Documented VS:
Initial Vital Signs
Pulse Resp BP Pulse Ox
102 22 125/57 92
11/13/24 22:25 11/13/24 22:25 11/13/24 22:25 11/13/24 22:25
Last Documented Vital Signs
Temp Pulse Resp BP Pulse Ox
97.3 F 109 17 121/53 92
11/13/24 23:25 11/13/24 23:15 11/13/24 23:15 11/13/24 23:00 11/13/24 22:25
<Ellis Huber PA-C - Last Filed: 11/14/24 00:32>
MDM/Problems Addressed
MDM/Problems Addressed:
This is a profoundly cachectic 78-year-old female presenting in acute respiratory distress. Unable to obtain reliable peripheral oxygen saturations thus ABG was obtained while on 15 L nonrebreather, while arterial oxygen saturations are adequate
her significant increased work of breathing prompted need for noninvasive ventilation and she was started on high flow nasal cannula with good results. Workup reveals large bilateral pleural effusions, some suspicion for possible pneumonia
particularly given leukocytosis with left shift and elevated procalcitonin. Cover with broad-spectrum IV antibiotics including vancomycin due to recent hospital admission and current skilled rehab residence. Additionally had intended to give the
patient a gentle fluid challenge due to her lactic acidosis however given the degree of pleural effusions and markedly elevated BNP we opted to withhold this for antibiotics. Lactic acidosis may be driven by severe hypoxia this will be trended.
Will be admitted to the hospitalist service for further management
<Ellis Huber PA-C - Last Filed: 11/14/24 00:32>
*Critical Care Note
Total Time (30-74mins, 75-104mins- exclusive of procedures): 90 minutes
comment:
Critical care time: 90 minutes
Critical care time was exclusive of: Separately billable procedures, treating other patients, and teaching time
Critical care was necessary to treat or prevent imminent or life-threatening deterioration of the following conditions: Respiratory failure with hypoxia
Critical care time spent personally by me on the following activities:
[x] Review of old charts
[x] Obtaining history from patient or surrogate
[x] Ordering and review of the laboratory studies
[x] Ordering and review of radiographic studies
[x] Ordering and performing treatments and interventions
[x] Patient patient's response to treatment
[x] Development of treatment plan with patient or surrogate
ED Attending Note
<Ellis Huber PA-C - Last Filed: 11/14/24 00:32>
-
Portions of this chart may have been created with voice recognition software.� Occasional wrong word or��sound alike� substitutions may have occurred due to the inherent limitations of voice recognition software.
<Michael Franco DO - Last Filed: 11/13/24 23:43>
ED Attending Note
Patient seen and examined by attending physician: Yes
I performed the substantive portion of visit, reviewed & personally made and approve the management plan that is documented in note by myself or KEVIN.: Yes
Discharge Plan
Departure
Patient Disposition: Admit
Date of Disposition: 11/14/24
Time of Disposition: 00:15
Admit to: IMU
Presentation/result/management discussed w/ accepting MD/DO: Hospitalist
Discharge Problem:
Acute hypoxic respiratory failure, Pneumonia, Acidosis, lactic
Prescriptions:
No Action
therapeutic multivitamin Tablet
1 tab PO DAILY
ascorbic acid (vitamin C) [Vitamin C] 500 mg Tablet
500 mg PO DAILY
calcium carbonate [Calcium 600] 600 mg calcium (1,500 mg) Tablet
600 mg PO BID
cholecalciferol (vitamin D3) [Vitamin D3] 25 mcg (1,000 unit) Tablet
25 mcg PO DAILY
sennosides [senna] 8.6 mg Tablet
17.2 mg PO HS
Rx Instructions:
Hold for LBM
acetaminophen 325 mg Tablet
650 mg PO Q6HPRN PRN (Reason: mild pain /temp>100.4)
magnesium hydroxide [Milk of Magnesia] 400 mg/5 mL Suspension
30 ml PO [id number] PRN (Reason: no bm x3 days)
bisacodyl 10 mg Suppository
10 mg KS DAILYPRN PRN (Reason: if no results from mom)
Fleet Enema 19-7 gram/118 mL Enema
118 ml KS DAILYPRN PRN (Reason: if bisacodyl ineffective)
docusate sodium 100 mg Capsule
100 mg PO BID
mupirocin 2 % Ointment
1 applic TOPICAL DAILY
simethicone 80 mg Tablet,Chewable
80 mg PO Q8HPRN PRN (Reason: gas)
Super Probiotic 20 billion cell Capsule
2 cap PO PC
potassium chloride 20 mEq Tablet Extended Release
40 meq PO DAILY
levothyroxine 25 mcg tablet
50 mcg PO DAILY
furosemide 20 mg tablet
20 mg PO BID
Referrals:
Lg Hernandez DO [Family Provider] -
Interventions
Interventions:
*Risk Screen - Suicide Last Done: 11/13/24 23:25
*General Assessment Last Done: 11/13/24 23:25
*Neglect/Abuse Screening Last Done: 11/13/24 23:25
*ED- Fall Risk Assessment Last Done: 11/13/24 23:30
*ED COVID-19 Vaccine History Last Done: 11/13/24 23:30
ED- Cardiac Assessment Last Done: 11/13/24 23:25
ED- Pulmonary Assessment Last Done: 11/13/24 23:25
Discharge Date and Time
Print Language: JAPANESE
[2024-11-13 23:24] VITALS: BMI 15.1
[2024-11-13 23:24] LABS: ALT (SGPT) 22 U/L (0-35); AST (SGOT) 29 U/L (14-36); Albumin 2.2 g/dl (3.5-5.0); Alkaline Phosphatase 74 U/L (38-126); Blood Urea Nitrogen 49 mg/dl (7-17); Calcium 8.7 mg/dl (8.4-10.2); Carbon Dioxide 33 mmol/L (22-30); Chloride 104 mmol/L (98-107); Glucose 97 mg/dl (70-99); Potassium 4.2 mmol/L (3.5-5.1); Sodium 142 mmol/L (135-145); Total Bilirubin 0.6 mg/dl (0.2-1.3); Total Protein 4.6 g/dl (6.3-8.2); eGFR > 60.00
[2024-11-13 23:34] LABS: % Basophils 0.1 % (0-2); % Immature Granulocytes 1.1 % (0-0.5); % Lymphocytes 3.1 % (20.5-51.1); % Monocytes 1.5 % (1.7-9.3); % Neutrophils 94.2 % (42.2-75.2); Absolute Immature Granulocytes 0.2 10^3/uL (0-0.05); Absolute Lymphocytes 0.4 10^3/uL (1.2-3.4); Absolute Monocytes 0.2 10^3/uL (0.1-0.6); Absolute Neutrophils 13.2 10^3/uL (1.4-6.5); Nucleated Red Blood Cells % 0.1 %
[2024-11-13 23:44] LABS: NT-proBNP > 27000 pg/ml; Troponin I 0.315 ng/ml
[2024-11-14] VITALS (21 sets, daily range): BP systolic 35–123; BP diastolic 23–70; BMI 14.9
[2024-11-14] MEDS: DUONEB 3 ML INH (00:21)
[2024-11-14] MEDS: VANCOCIN 200 IV (00:22)
[2024-11-14] MEDS: MAXIPIME 2000 MG IV (00:28)
--- NOTE | 2024-11-14 01:00 | HPS.HSE ---
Family Physician
-
Family Physician: Lg Hernandez
Chief Complaint
-
SOB
History of Present Illness
Patient is an 78y F with PMH significant for anasarca, malnutrition, hypothyroidism and aortic insufficiency who presents to ED from local [place] complaining of SOB. History obtained from family at the bedside. Patient recently hospitalized at
from 10/01 - 10/08 for anasarca and LE blistering edema. She was treated with IV diuresis and discharged on Lasix 20mg MoWeFr. Since that time her Lasix dose has been increased - such that she is currently on 20mg BID. Family states that patient
completed SNF stay today and moved into her personal care apartment. Family spent much of the day with her and she seemed to be doing fairy well.
This evening they returned to the facility and found the patient with significant SOB. She had increased work of breathing and audible coarse breath sounds.
There was no witnessed aspiration event - though family does note that patient has been having recent issues with swallow dysfunction (tube feeds were discussed and declined during prior admission).
Patient was hypoxemic at the nursing facility with saturations in the 70s.
She was transported to the ED for further evaluation.
At the time of my examination, patient appears more comfortable according to family. She has agonal appearing respiration pattern at times - but will wake and follow commands / nod to questions.
Oxygen saturations currently 100% on high flow O2.
Medical History
Past Medical History
Past Medical History: Reports Other
Additional Past Medical History:
Anasarca
Severe Protein Calorie Malnutrition
Hypoalbuminemia
Chronic HFpEF
Severe Aortic Insufficiency
Dysphagia
Hypothyroidism
Osteoporosis
Lumbar Compression Fracture (L3)
Tuberculosis (s/p treatment - 1970s)
Past Surgical History: Reports Other
Additional Past Surgical History:
ERCP / Sphincterotomy
Cholecystectomy
Social History
Tobacco: Non-smoker
Alcohol: None
Drug: None
Family History
Family History: Not pertinent
Allergies / Home Medications
Allergies reflects when Allergies were last updated in [facility].
Home Medications with original date entered in [facility]
Allergy/Medication List:
Allergies
Allergy/AdvReac Type Severity Reaction Status Date / Time
No Known Allergies Allergy Verified 11/13/24 23:25
Home Medications
ascorbic acid (vitamin C) 500 mg tablet (Vitamin C) 500 mg PO DAILY Supplement 10/01/24
calcium carbonate (Calcium 600) 600 mg PO BID Supplement 10/01/24
cholecalciferol (vitamin D3) 25 mcg (1,000 unit) tablet (Vitamin D3) 25 mcg PO DAILY Supplement 10/01/24
therapeutic multivitamin 1 tab PO DAILY Supplement 10/01/24
Lactobacillus acidophilus-Bifidobac.animalis 20 billion cell capsule (Super Probiotic) 2 cap PO PC 11/13/24
acetaminophen 325 mg tablet 650 mg PO Q6HPRN PRN mild pain /temp>100.4 11/13/24
bisacodyl 10 mg rectal suppository 10 mg [place] DAILYPRN PRN if no results from mom 11/13/24
docusate sodium 100 mg capsule 100 mg PO BID 11/13/24
furosemide 20 mg tablet 20 mg PO BID 11/13/24
levothyroxine 25 mcg tablet 50 mcg PO DAILY 11/13/24
magnesium hydroxide 400 mg/5 mL oral suspension (Milk of Magnesia) 30 ml PO [id number] PRN no bm x3 days 11/13/24
mupirocin 2 % topical ointment 1 applic topical DAILY BL L/E 11/13/24
potassium chloride 20 mEq tablet,extended release 40 meq PO DAILY 11/13/24
sennosides 8.6 mg tablet (senna) 17.2 mg PO HS 11/13/24
simethicone 80 mg chewable tablet 80 mg PO Q8HPRN PRN gas 11/13/24
sodium phosphates 19 gram-7 gram/118 mL enema (Fleet Enema) 118 ml [place] DAILYPRN PRN if bisacodyl ineffective 11/13/24
Review of Systems
-
History Source: Patient and Family
A 12 point ROS was completed and negative except as noted: Yes
Constitutional: Reports Weight Gain and Fatigue; Denies Fever or Chills
Respiratory: Reports Cough and Trouble Breathing; Denies Hemoptysis
Cardiac: Denies Chest Pain
Abdomen/GI: Reports Nausea and Anorexia; Denies Abdominal Pain, Vomiting, Diarrhea or Constipated
: Denies Dysuria or Frequency
Musculoskeletal: Reports Edema; Denies Joint Pain
Neurological: Denies Dizzy or Headache
Physical Exam
Vital Signs
Vital Signs
Temp Pulse Resp BP Pulse Ox
97.3 F 104 15 102/48 100
11/13/24 23:25 11/14/24 00:30 11/14/24 00:30 11/14/24 00:00 11/14/24 00:30
Physical Exam
General: Other (Cachectic 78y F sleeping at present with occasional agonal appearing respiratory pattern.)
HEENT: Other (Dry MM. Neck supple. Bitemporal wasting.)
Respiratory: Other (Decreased BS at bases. Pos rhonchi over the R anterior / upper lung monzon. Bibasilar rales. No wheezing.)
Cardiac: S1/S2, Regular Rhythm and Murmur (II/ ASHTYN)
GI: Soft, Non Tender, Non Distended and Normal Bowel Sounds
Musculoskeletal: Other (2+ pitting edema b/l LEs Diffuse muscle loss.)
Neuro: Other (Sleeping. Will open eyes and nod to questions.)
Laboratory Results
-
11/13/24 22:49
11/13/24 22:49
Laboratory Results
pH 7.50 (7.35-7.45) H 11/13/24 22:50
pCO2 41 mmHg (32-35) H 11/13/24 22:50
pO2 188 mmHg (83-108) H 11/13/24 22:50
HCO3 32.0 mmol/L (21-28) H 11/13/24 22:50
Lactic Acid 3.2 mmol/L (0.7-2.0) H 11/13/24 22:49
Total Bilirubin 0.6 mg/dl (0.2-1.3) 11/13/24 22:49
AST 29 U/L (14-36) 11/13/24 22:49
ALT 22 U/L (0-35) 11/13/24 22:49
Alkaline Phosphatase 74 U/L (38-126) 11/13/24 22:49
Troponin I 0.315 ng/ml H* 11/13/24 22:49
Impression/Plan
-
A/P: Patient is an 78y F with PMH significant for hypothyroidism, malnutrition and anasarca who presents to ED for evaluation of acute SOB.
RUL Pneumonia - Likely Aspiration Event
Acute Hypoxemic Respiratory Failure secondary to the above
Sepsis secondary to the above
- Admit for further evaluation and treatment.
- Patient with abrupt onset of dyspnea, new RUL infiltrate and recent noted issues with swallow dysfunction.
- IV abx with Unasyn for now.
- Aspiration precautions, NPO, Speech eval, nebs, etc.
- Hold diuretics acutely given lactic acidosis and pneumonia - though will likely require additional diuresis in the next few days (see below).
- Follow fever curve. Follow for clinical improvement.
- Wean O2 as able (currently 100% on high flow).
- Use albumin for volume if any hypotension / hemodynamic instability.
Acute on Chronic HFpEF
Severe Aortic Insufficiency
Severe Protein-Calorie Malnutrition
Anasarca secondary to the above
- Patient with persistent edema, bilateral pleural effusions, etc.
- Elevated ProBNP and troponin (see below).
- Hold Lasix acutely as noted above.
- Follow I/Os, daily weights, etc.
- Will likely require IV diuresis in the next few days once sepsis addressed.
- Fluid shifts / third spacing seems primarily driven by hypoalbuminemia / malnutrition - making management difficult.
Abnormal Troponin
- Unclear etiology - ? secondary to acute illness, CHF, etc.
- EKG with non-specific changes compared to prior tracings. No STEMI.
- No complaints of chest pain.
- Follow troponin to peak.
- Treat underlying sepsis / respiratory distress.
- Cardiology evaluation.
Normocytic Anemia
- Hgb = 9.6 down from 11-12g range during recent admission.
- No gross evidence of blood loss reported.
- Check iron studies / indices.
- Follow for changes with volume shifts.
Hypothyroidism
- Continue current T4 replacement.
Dysphagia
Swallow Dysfunction
- Speech eval as noted above.
- Had GI evaluation during recent admission with EGD (Schatzki's ring, hiatal hernia, gastritis, etc).
- PEG tube discussed and declined at that time.
DVT Prophylaxis: Subcut Heparin
Code Status: DNR
Overall prognosis is poor given constellation of issues, severe malnutrition, etc. Would consider Hospice / Palliative Care evaluation.
[2024-11-14 03:03] LABS: Hematocrit 29.9 % (37.0-47.0); Hemoglobin 10.1 g/dL (12.0-16.0); Mean Corp Hgb Conc. 33.8 g/dL (33.0-37.0); Mean Corpuscular Hgb 33.6 pg (27.0-31.0); Mean Corpuscular Volume 99.3 fL (81.0-99.0); Mean Platelet Volume 10.2 fL (7.4-10.4); Platelet Count 163 10^3/uL (130-400); Red Blood Cell Count 3.01 10^6/uL (4.20-5.40); Red Cell Dist. Width 14.2 % (11.5-14.5); White Blood Cell Count 12.1 10^3/uL (4.8-10.8)
[2024-11-14 03:29] LABS: Troponin I 0.295 ng/ml
[2024-11-14 03:31] LABS: Blood Urea Nitrogen 48 mg/dl (7-17); Calcium 8.4 mg/dl (8.4-10.2); Carbon Dioxide 30 mmol/L (22-30); Chloride 108 mmol/L (98-107); Estimated Creatinine Clearance 40 ml/min; Glucose 107 mg/dl (70-99); Iron 33 ug/dl (37-170); Potassium 3.9 mmol/L (3.5-5.1); Sodium 144 mmol/L (135-145); eGFR > 60.00
[2024-11-14 03:41] LABS: Percent Saturation 24 % (20-50); Total Iron Binding Capacity 134 ug/dl (265-497)
[2024-11-14 03:52] LABS: Lactic Acid 2.1 mmol/L (0.7-2.0)
[2024-11-14 04:38] LABS: Folate 17.1 ng/ml (2.76-20); Vitamin B12 > 1000 pg/ml (239-931)
[2024-11-14] MEDS: UNASYN IV ×2 (06:01→12:26)
--- NOTE | 2024-11-14 06:08 | PTCARENOTE ---
Rec'd pt from ED IMU overflow. Lethargic, opens eyes to voice. Unable to speak 2/2 tenuous respiratory status, but nods head to questions. Moves upper extremities 5/5, lowers with foot drop and wounds. Wounds cleansed/redressed, WOC consult placed.
96.8 [place], ST on monitor with PACs. Labs sent as ordered. Ivs capped. High flow O2, sat 95%. NPO status. Will monitor.
[2024-11-14] MEDS: HEPARIN 5000 UNITS SC (08:00)
[2024-11-14] MEDS: PROTONIX IV 40 MG IV (08:01)
[2024-11-14] MEDS: NSS (PRESERVATIVE FREE) 10 ML IV (08:01)
--- NOTE | 2024-11-14 09:11 | W.PN.HOSP.TC ---
Today's Communication/Plan
-
Antibiotics. Pressors.
Assessment / Plan
Assessment / Plan
Physical Exam
General: Other (Cachectic 78y F sleeping at present with occasional agonal appearing respiratory pattern.)
HEENT: Other (Dry MM. Neck supple. Bitemporal wasting.)
Respiratory: Other (Decreased BS at bases. Pos rhonchi over the R anterior / upper lung monzon. Bibasilar rales. No wheezing.)
Cardiac: S1/S2, Regular Rhythm and Murmur (II/ ASHTYN)
GI: Soft, Non Tender, Non Distended and Normal Bowel Sounds
Musculoskeletal: Other (2+ pitting edema b/l LEs Diffuse muscle loss.)
Neuro: Other (Semi-comatose. Will not open eyes and does not nod to questions.)
A/P:
Septic shock due to pneumonia. Also suspect cardiogenic shock:
Sepsis due to to aspiration pneumonia
Cardiogenic shock due to acute NC and severe valvulopathy.
Continue IV antibiotics
WBC 14-->12
Lactic acid 3.2--> 2.1
Influenza negative
COVID-19 negative
Blood cultures pending
Acute hypoxic respiratory failure:
On 15 L of oxygen
Wean oxygen as tolerated
Seen and reviewed chest x-ray and CT scan of the chest
Continue diuresis
Continue antibiotic
Bronchodilators
Lengthy discussions with family at bedside including daughter who is a hospitalist. Despite best efforts patient will continue to deteriorate clinically and very likely increase morbidity and mortality but family would like to add pressors until
rest of the family come to see her. In an effort to provide some degree of comfort will add some morphine and Ativan and family agrees.
Acute CHF likely diastolic:
Holding diuretics but even initiating diuretics her hemodynamics would not allow it at the moment
Monitor ins and outs and daily weight
BNP more than 27,000
Cardiology consulted overnight but pending evaluation
Elevated troponin:
Likely acute non-STEMI
Not amenable for any interventional procedures given frailty and multiple comorbidities
Follow-up cardiac enzyme trend
Cardiac monitoring
Severe valvulopathy:
Based on last echo in September 2024
Severe aortic insufficiency
Mild mitral regurgitation
Mild tricuspid regurgitation
Dysphagia:
IV Protonix
N.p.o.
Speech eval
Acute toxic metabolic encephalopathy:
Likely related to acute illness
Severe protein calorie malnutrition:
Follow-up nutrition parameters
Anemia:
Monitor hemoglobin closely
Hypothyroidism:
Thyroid replacement unable to take oral
Other medical problems:
History of atrial tachycardia
Osteoporosis
History of TB in the 70s
L2 compression fracture
Mild celiac artery stenosis
Ascites and known portal hypertension
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
History of Schatzki's ring
Hypoalbuminemia
DVT prophylaxis:
Heparin SQ
CODE STATUS:
DNR
Total Critical Care Time__55___ minutes. I was immediately available to the patient and staff. I personally examined, reviewed labs, diagnostic images/reports, interpretations, treatment plans, discussed patient care with other providers and
family or caregivers (if patient is unable to make decisions), entered orders as appropriate and documented the medical record.
Anticipated Discharge: Today
Subjective/Interval History
-
Date of Service: November 14, 2024
Patient hypotensive, hypoxic, frail, cachectic.
Objective Data
-
Labs:
Laboratory Results
11/13/24 11/13/24 11/14/24
22:49 22:50 02:56
WBC 14.0 H 12.1 H
Hgb 9.6 L 10.1 L
Hct 28.6 L 29.9 L
Plt Count 203 163
HCO3 32.0 H
Sodium 142 144
Potassium 4.2 3.9
Chloride 104 108 H
Carbon Dioxide 33 H 30
BUN 49 H 48 H
Creatinine 0.7 0.6
Glucose 97 107 H
Calcium 8.7 8.4
Total Bilirubin 0.6
AST 29
ALT 22
Alkaline Phosphatase 74
Vital Signs:
Vital Signs
Temp Pulse Resp BP Pulse Ox
93.0 F L 100 15 123/57 96
11/14/24 09:00 11/14/24 06:00 11/14/24 06:00 11/14/24 06:00 11/14/24 07:42
I&O
11/13/24 11/14/24 11/15/24
06:59 06:59 06:59
Intake Total 50 / 50
Balance 50 / 50
--- NOTE | 2024-11-14 09:32 | PTCARENOTE ---
Assumed care at 0700. Lethargic, opens eyes to voice. Unable to speak 2/2 tenuous respiratory status, but nods head to questions. Moves upper extremities 5/5, lowers with foot drop and wounds. Wounds cleansed/redressed, WOC consult placed. 93
degrees AZ, Bare hugger applied and rectal probe connected. ST on monitor with PACs, PVCs. O@ changed from HF to 15L MF. SpO2 98% but intercostal, substernal retractions present. NPO status. Will monitor.
--- NOTE | 2024-11-14 09:40 | WOUNDNOTE ---
[facility] RN note: Patient admitted with aspiration pneumonia, sepsis. Prognosis poor as per physician documentation.
See H&P for complete history.
PMH: anasarca, malnutrition, aortic insufficiency, [facility] admission 10/01/24, lumbar compression fracture L3, TB s/p treatment .
Wound Location and type/assessment: Patient admitted with: full thickness to subcutaneous layer LE ulcers suspect r/t previous edema, appearance pink, scabbed, yellow/brown slough. Sacrum dull red with pinpoint scab (stage 2 pressure injury). R
perianal/buttocks with couple dermal abrasions suspect r/t edema, moisture. Lower back stage 1 pressure injury. L dorsal toe scabbed abrasion. +Pedal pulses heard via portable Doppler. No LE noted.
Appetite: NPO. Tube feeding has been declined in past.
Pressure redistribution devices in place: Centrella Max air bed. Patient immobile.
Plan: LE dressings changed. Sacral shaped silicone border foam maintained on sacrum. Protective silicone border foam applied to back/spine bony prominence. Patient's daughter Caridad present. Instructed daughter patient high risk for pressure
injuries despite preventative measures in place d/t overall medical condition. Daughter understands this. Patient turned to L semi side lying position with help from RN anika Khalil. Patient's soft heel relief boots reapplied.
Will confirm orders with Dr. Valencia and discussed with SHAQUILLE Lan.
Care plan to be updated and will follow as needed.
Note to case management of equipment requested for discharge: Air mattress.
--- NOTE | 2024-11-14 09:42 | WOUNDNOTE ---
[facility] RN note: Patient admitted with aspiration pneumonia, sepsis. Prognosis poor as per physician documentation.
See H&P for complete history.
PMH: anasarca, malnutrition, aortic insufficiency, [facility] admission 10/01/24, lumbar compression fracture L3, TB s/p treatment .
Wound Location and type/assessment: Patient admitted with: dermal and full thickness to subcutaneous layer LE ulcers suspect r/t previous edema, pink, scabbed, yellow/brown slough. Sacrum dull red. R perianal/buttocks with couple dermal abrasions
suspect r/t edema, moisture. Lower back stage 1 pressure injury. Toes mottled. +Pedal pulses heard via portable Doppler.
Appetite: NPO. Tube feeding has been declined in past.
Pressure redistribution devices in place: Centrella Max air bed. Patient immobile.
Plan: LE dressings changed. Sacral shaped silicone border foam maintained on sacrum. Protective silicone border foam applied to back/spine bony prominence. Patient's daughter Caridad present. Instructed daughter patient high risk for pressure
injuries d/t overall medical condition. Daughter understands this. Patient turned to R semi side lying position with help from RN student Remi. Patient's soft heel relief boots reapplied.
Will confirm orders with Dr. Valencia and discussed with SHAQUILLE Lan.
Care plan to be updated and will follow as needed.
Note to case management of equipment requested for discharge: Air mattress.
--- NOTE | 2024-11-14 09:50 | W.PN.UPDATE ---
Update Note
Progress Note Update
Discussed case with primary hospitalist, Dr. Valencia. Patient is DNR/DNI and is actively dying. No official pulmonary consult needed at this time. Please call back if there are any additional questions or concerns.
--- NOTE | 2024-11-14 09:57 | WOUNDNOTE ---
L FOOT/ANKLE (DORSAL)
--- NOTE | 2024-11-14 09:57 | WOUNDNOTE ---
L FOOT/ANKLE (DORSAL MEDIAL)
--- NOTE | 2024-11-14 09:58 | WOUNDNOTE ---
R ANKLE/FOOT (LATERAL)
--- NOTE | 2024-11-14 09:59 | WOUNDNOTE ---
L CALF/ANKLE (LATERAL)
--- NOTE | 2024-11-14 10:00 | WOUNDNOTE ---
BACK (LOWER SPINE)
[2024-11-14 10:20] LABS: Lactic Acid 1.2 mmol/L (0.7-2.0)
[2024-11-14] MEDS: LEVOPHED 250 IV (12:26)
[2024-11-14] MEDS: NSS 1000 IV (12:26)
--- NOTE | 2024-11-14 13:28 | W.PN.DEATH ---
Pronouncement of
-
Called to see patient to pronounce.
No spontaneous heart tones or respirations noted.
Patient not responsive to verbal stimuli.
Patient is pronounced .
Time of : 13:06
Date of : 11/14/24
Cause of : Sepsis due to pneumonia. Cardiogenic and septic shock.
Family Notified: Yes
--- NOTE | 2024-11-14 13:29 | W.DCSUMMARY ---
Discharge Summary
Discharge Data
Date of Admission: 11/14/24
Date of Discharge: 11/14/24
-
Pending Results: No
Hospital Course
Patient 78 years old female with history of CHF, aortic insufficiency, paroxysmal atrial tachycardia, hypothyroidism, celiac artery stenosis, Schatzki ring, hypoalbuminemia, osteoporosis, protein calorie malnutrition, came into the hospital with
altered mental status shortness of breath. Patient was critically ill in shock and also in acute hypoxic respiratory failure. She was given broad-spectrum IV antibiotics, significant amount of oxygen supplementation, and pressors. Discussions
took place with family trying to come to peace to with her grave prognosis and she was also given some comfort medications. Patient was DNR. Patient on 11/14/2024 at 13:06.
Discharge duration: 35 minutes
Discharge Plan
-
Patient Disposition:
Date/Time
Date/Time: 11/14/24 13:06
Discharge Date and Time
Discharge Date/Time: 11/14/24 13:06
Print Language: DANISH
--- NOTE | 2024-11-14 13:38 | CON.CAR ---
Addendum entered and electronically signed by Chad Mcguire DO 11/14/24 14:15:
I saw and examined the patient 11/14/2024 0700.
The Inventory And Pricing Associate's note was reviewed and I agree with the note.
Comment:
Plan:
Significant debilitation in septic shock and likely cardiogenic shock.
Extremely poor prognosis
Pt would ultimately need eventual diuresis
Check echo
Trend troponins
Goals of care discussions ongoing and appropriate
Original Note:
Consultation
Consultation Request
Date/Time Consultation Requested: 11/14/2024 025
Date/Time Consultation Performed: 11/14/2024 0700
Requesting Provider: Dr. Romano
Performing Provider: Dr. Mcguire
Reason for Consultation: Acute CHF, elevated troponin
Medical History
-
History of Present Illness:
Patient came to ER late last night with increased SOB and was admitted with multifactorial dyspnea including possible acute HFpEF and cardiology was consulted. Patient was recently admitted to from 10/01/2024 until 10/08/2024 with acute HFpEF
including symptoms of anasarca and LE edema. Patient also noted to have ascites during that admission resulting in paracentesis with SAG criteria consistent with portal HTN. Also patient noted to have preserved EF with severe aortic regurgitation
on echo during that admission, but is felt as though her options were limited given anorexia and hypoalbuminemia. Patient was diuresed during that admission and was discharged to rehab and then apparently within a day prior to this recurrent
admission was transferred from rehab back to personal-care at her facility. Patient was taking Lasix 20 mg MWF when she was discharged from , but this had been increased to 20 mg BID during her time at rehab and was continued when she returned to
personal care. Records reviewed from the ER and there was no witnessed aspiration event, but this was a concern with RUL PNA seen on admitting CXR. proBNP however was markedly elevated at greater than 27,000 compared to last admission when it was
3940. Additionally the troponin was 0.315 on admission and trending down thereafter.
PMH:
Recent admission with acute HFpEF, anasarca and LE edema 10/01/2024 until 10/08/2024
Chronic HFpEF
Severe aortic insufficiency
Paroxysmal atrial tachycardia
Frequent PACs
Severe aortic regurgitation diagnosed by echo 09/2024
Hypothyroidism
Mild celiac artery stenosis
Ascites, SAAG with portal hypertension, paracentesis 1200 mL 10/03/2024
Pleural effusions bilaterally
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
Schatzki's ring
Hypoalbuminemia/malnutrition
Osteoporosis/L3 compression fracture
Past Medical History
Past Medical History: Other (History of tuberculosis 1970s, treated, osteoporosis with L3 compression fracture, admitted on October 01 with lower extremity edema and erythema with cold lower extremities)
Past Surgical History: None
Social History
Tobacco: Non-Smoker
Alcohol: None
Drug: None
Personal:
Living: With Family
Employment: Retired
Family History
Family History: Cancer and Diabetes
Allergies / Home Medications
Allergy/AdvReac Type Severity Reaction Status Date / Time
No Known Allergies Allergy Verified 11/13/24 23:25
�Medication �Instructions �Recorded �Confirmed �Type
ascorbic acid (vitamin C) 500 mg 500 mg PO DAILY Supplement 10/01/24 11/13/24 History
tablet (Vitamin C)
calcium carbonate (Calcium 600) 600 mg PO BID Supplement 10/01/24 11/13/24 History
cholecalciferol (vitamin D3) 25 25 mcg PO DAILY Supplement 10/01/24 11/13/24 History
mcg (1,000 unit) tablet (Vitamin
D3)
therapeutic multivitamin 1 tab PO DAILY Supplement 10/01/24 11/13/24 History
Lactobacillus 2 cap PO PC 11/13/24 11/13/24 History
acidophilus-Bifidobac.animalis 20
billion cell capsule (Super
Probiotic)
acetaminophen 325 mg tablet 650 mg PO Q6HPRN PRN mild pain 11/13/24 11/13/24 History
/temp>100.4
bisacodyl 10 mg rectal suppository 10 mg [place] DAILYPRN PRN if no 11/13/24 11/13/24 History
results from mom
docusate sodium 100 mg capsule 100 mg PO BID 11/13/24 11/13/24 History
furosemide 20 mg tablet 20 mg PO BID 11/13/24 11/13/24 History
levothyroxine 25 mcg tablet 50 mcg PO DAILY 11/13/24 11/13/24 History
magnesium hydroxide 400 mg/5 mL 30 ml PO [id number] PRN no bm x3 days 11/13/24 11/13/24 History
oral suspension (Milk of Magnesia)
mupirocin 2 % topical ointment 1 applic topical DAILY BL L/E 11/13/24 11/13/24 History
potassium chloride 20 mEq 40 meq PO DAILY 11/13/24 11/13/24 History
tablet,extended release
sennosides 8.6 mg tablet (senna) 17.2 mg PO HS 11/13/24 11/13/24 History
simethicone 80 mg chewable tablet 80 mg PO Q8HPRN PRN gas 11/13/24 11/13/24 History
sodium phosphates 19 gram-7 118 ml [place] DAILYPRN PRN if 11/13/24 11/13/24 History
gram/118 mL enema (Fleet Enema) bisacodyl ineffective
Review of Systems
-
History Source: Patient and Family
All other systems: Negative unless noted
Physical Exam
Vital Signs
Temp Pulse Resp BP Pulse Ox
92.5 F L 48 17 / 86
11/14/24 11:16 11/14/24 12:15 11/14/24 12:15 11/14/24 12:02 11/14/24 11:30
GEN: NAD
HEENT:dry mm
LUNGS: 12 L mid flow. Bibasilar rales without audible wheeze
CV: Reg with frequent ectopy noted, S1/S2, no murmur
ABD: ND
EXT: +2 B/L LE edema
NEURO: Gross non-focal
SKIN: No rash
Lab Results
11/14/24 02:56
11/14/24 02:56
Troponin I 0.270 ng/ml H* 11/14/24 09:59
Zwo-T-Erggfmdtmfu Pept > 75279 pg/ml 11/13/24 22:49
Impression / Plan
-
PCP: Lg Hernandez
Hardwood Floor Refinisher: None prior to admission, initial consultation Cyril Mcbride
Impression:
Admitted with increased SOB 11/13/2024
Recent admission with acute HFpEF, anasarca and LE edema 10/01/2024 until 10/08/2024
Acute hypoxic respiratory failure
RUL PNA
Possible aspiration
Sepsis
Acute on chronic HFpEF
Severe aortic insufficiency
Possibly only mild aortic regurgitation given small ventricle and pressure half-time on the aortic valve Doppler envelope is very long
Paroxysmal atrial tachycardia
Frequent PACs
Severe aortic regurgitation diagnosed by echo 09/2024
Hypothyroidism
Mild celiac artery stenosis
Ascites, SAAG with portal hypertension, paracentesis 1200 mL 10/03/2024
Pleural effusions bilaterally
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
Schatzki's ring
Hypoalbuminemia/malnutrition
Osteoporosis/L3 compression fracture
Echo 10/03/2024: EF 50-55% normal RV, normal atria, thickened mitral leaflets and mild mitral regurgitation, severe aortic regurgitation, thickened leaflets, mild tricuspid regurgitation, pulmonary artery pressure 20-25
Plan:
-Patient came to ER late last night with increased SOB and was admitted with multifactorial dyspnea including possible acute HFpEF and cardiology was consulted. Patient was recently admitted to from 10/01/2024 until 10/08/2024 with acute HFpEF
including symptoms of anasarca and LE edema. Patient also noted to have ascites during that admission resulting in paracentesis with SAG criteria consistent with portal HTN. Also patient noted to have preserved EF with severe aortic regurgitation
on echo during that admission, but is felt as though her options were limited given anorexia and hypoalbuminemia. Patient was diuresed during that admission and was discharged to rehab and then apparently within a day prior to this recurrent
admission was transferred from rehab back to personal-care at her facility. Patient was taking Lasix 20 mg MWF when she was discharged from , but this had been increased to 20 mg BID during her time at rehab and was continued when she returned to
personal care. Records reviewed from the ER and there was no witnessed aspiration event, but this was a concern with RUL PNA seen on admitting CXR. proBNP however was markedly elevated at greater than 27,000 compared to last admission when it was
3940. Additionally the troponin was 0.315 on admission and trending down thereafter.
-ECG reviewed by me from earlier this morning shows sinus tachycardia with PACs and second ECG from 820 this morning also looks like SR with PACs and nonspecific ST changes
-Patient with multifactorial acute hypoxemic respiratory failure including possible aspiration event with RUL PNA and HFpEF all in the setting of severe protein and calorie malnutrition that was present during her admission last month as well.
-Lasix 20 mg IV x 1 was ordered in the ER, but dose was ultimately not given in favor of sepsis management which included IVF's
-Patient has anasarca that was also present at last admission and this is multifactorial including volume overload but also hypoalbuminemia
-Pending response to IVF's with sepsis patient will eventually need to be diuresed
-EF was preserved at last echo, but there was a suggestion of severe aortic regurgitation. Dr. Mcbride previously noted that the ventricle was small and the pressure half-time on the aortic regurgitation Doppler envelope was very long implying that
it may have only been mild aortic regurgitation. Regardless even if aortic regurgitation is severe the patient is not a candidate for surgery given age and body habitus
-Patient with history of paroxysmal atrial tachycardia, but ECGs so far look like SR with PACs. No indication for anticoagulation
-Initial troponin was elevated at 0.3 and trended down thereafter. No acute ischemic changes on ECG. Check echo to look for WMA, but for now we will manage as a nonischemic myocardial injury troponin elevation in the setting of PNA and CHF.
--- NOTE | 2024-11-14 14:00 | PTCARENOTE ---
At approx 1200, Both daughters to bedside. Unable to obtain SpO2 after multiple placements. Temp remains 92.3 with yahir hugger at high. HR now irregular. Notified daughters of ominous presentation and contacted Dr. Valencia. NS bolus began and
levophed started as per daughter Vi's request to maintain BP until family arrival. Dr. Valencia to bedside to discuss goals of care. Family arrived, saddle tree stitcher to bedside. Pt passed at 1306. Pronounced by Dr Valencia.
--- NOTE | 2024-11-14 14:09 | CM ---
CM following re: discharge planning.
Discussed in Rounds, reviewed pt's chart.
Pt is an 78 year old female, admitted with primary dx of Septic shock due to pneumonia. Also suspect cardiogenic shock
Pt is admitted from [facility] where she was for a short term rehab.
Pt at 13:06. Emotional support provided.
== END 2024-11-14 13:06 | disposition expired | DRG 871 ==
LOC: ICU 02:12
PROVIDERS: Nurse Practitioner Family; Physician Assistant; ADMITTING PHYSICIAN Hospitalist; ATTENDING PHYSICIAN Hospitalist; EMERGENCY PHYSICIAN Emergency Medicine; FAMILY PHYSICIAN Internal Medicine; OTHER PHYSICIAN Nuclear Medicine Nuclear Cardiology
DX: A41.89 Other specified sepsis (principal); E43 Unspecified severe protein-calorie malnutrition; J96.01 Acute respiratory failure with hypoxia; J18.9 Pneumonia, unspecified organism; J69.0 Pneumonitis due to inhalation of food and vomit; I50.33 Acute on chronic diastolic (congestive) heart failure; R65.21 Severe sepsis with septic shock; G92.8 Other toxic encephalopathy; E87.20 Acidosis, unspecified; I5A Non-ischemic myocardial injury (non-traumatic); Z68.1 Body mass index [BMI] 19.9 or less, adult; Z11.52 Encounter for screening for COVID-19; I35.1 Nonrheumatic aortic (valve) insufficiency; E03.9 Hypothyroidism, unspecified; Z66 Do not resuscitate; R57.0 Cardiogenic shock
CPT/HCPCS: 71045; 71275; 80048; 80053; 82607; 82728; 82746; 82805; 83540; 83550; 83605; 83880; 84145; 84484; 85025; 85027; 87040; 87502; 87811; 93005; 94640; 96365; 96375; 99291; 99292; Q9967